=== PATIENT | male | born 1935 | race Caucasian/White ===

== ENCOUNTER 2017-10-26 14:14 | Emergency (ER) | payer OTHER ==
--- OUTSIDE RECORDS SUMMARY | 2017-10-26 14:16 | XMS REPORT | Clinical Summary ---
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
[2017-10-26] MEDS ORDERED: NA CHLORIDE 0.9% 1,000 ML ONE (14:54)
[2017-10-26 15:31] LABS: Absolute Lymphocytes (CBC) 0.5 K/uL (0.7-4.9); Absolute Monocytes 0.5 K/uL (0.1-1.3); Absolute Neutrophil 3.1 K/uL (1.8-8.0); Basophils % 0.2 % (0-1.3); Eosinophils % 0.1 % (0-4.4); Hematocrit 36.8 % (39.6-49.0); Lymphocytes % 11.5 % (15.3-44.8); MCH 30.9 pg (27.0-35.0); MCV 88.8 fL (80-100); MPV 9.7 fL (7.6-11.3); Monocytes % 12.1 % (3.3-12.3); RBC Red Blood Cell Count 4.15 M/uL (4.33-5.43)
[2017-10-26 15:45] LABS: Blood Morphology Comment NOT SEEN (NOT SEEN); Platelet Estimate DECR; Urine White Blood Cell Casts OK
--- NOTE | 2017-10-26 17:23 | ER ---
Nurse's Notes [facility] Name: Tate Olivas Age: 82 yrs Sex: Male : 1935 Arrival Date: 10/26/2017 Time: 14:15 Bed 14 Private MD: Edgar Nguyen T; Aileen Arellano M Diagnosis: Diarrhea, unspecified;Dehydration Presentation: 10/26 14:20 Presenting complaint: states: started Wednesday with diarrhea, have hemorrhoids, i tw2 thought he was constipated so i gave him a Dulcolax, and now just even water goes through him. Transition of care: patient was not received from another setting of care. Onset of symptoms was October 26, 2017. Care prior to arrival: None. 14:20 Method Of Arrival: Ambulatory tw2 14:20 Acuity: CINTHIA 3 tw2 Historical: - Allergies: 14:25 Doxycycline (confusion); tw2 14:25 PENICILLINS; tw2 - Home Meds: 14:25 verapamil 240 mg Oral TbER 1 tab once daily [Active]; lisinopril 20 mg Oral tab 1 tab tw2 once daily [Active]; rivastigmine tartrate 9.5 mg patch oral cap 1 cap 2 times per day [Active]; Sinemet 25-100 mg Oral tab 1 tab 3 times per day [Active]; vitamin E 15 unit/0.3 mL Oral drop 0.6 mL once daily [Active]; - PMHx: 14:25 Hairy cell leukemia; Parkinsons; Hypertension; tw2 - PSHx: 14:25 TURP; Skin Cancer Removal; tw2 - Immunization history:: Adult Immunizations up to date. - Social history:: Smoking status: Patient/guardian denies using tobacco. Screenin:48 Abuse screen: Denies threats or abuse. Nutritional screening: No deficits noted. ap3 Tuberculosis screening: No symptoms or risk factors identified. Fall Risk None identified. Assessment: 14:45 General: Appears in no apparent distress. well groomed, Behavior is calm, cooperative. ap3 Pain: Denies pain. Neuro: Level of Consciousness is awake, alert, obeys commands, Oriented to person, place, time, situation. Cardiovascular: Heart tones S1 S2 present Patient's skin is warm and dry. Respiratory: Airway is patent Respiratory effort is even, unlabored, Respiratory pattern is regular, symmetrical. GI: Bowel sounds present X 4 quads. Abd is soft and non tender X 4 quads. Reports diarrhea, since Wednesday October 25, 2017. : No signs and/or symptoms were reported regarding the genitourinary system. EENT: No signs and/or symptoms were reported regarding the EENT system. Derm: Skin is pink, warm \T\ dry. Musculoskeletal: Reports weakness in generalized body weakness. 17:02 Reassessment: patient resting in bed, eyes closed. Respirations even and unlabored. ap3 Side rails up X's 2. Call brizuela within reach. at bedside. Vital Signs: 14:22 BP 143 / 66; Pulse 88; Resp 17; Temp 99.4(O); Pulse Ox 97% on R/A; Weight 83.91 kg (R); tw2 Height 6 ft. 0 in. (182.88 cm); Pain 5/10; 15:30 BP 134 / 66; Pulse 80; Pulse Ox 98% on R/A; ap3 17:06 BP 156 / 69; Pulse Ox 98% on R/A; ap3 14:22 Body Mass Index 25.09 (83.91 kg, 182.88 cm) tw2 ED Course: 14:15 Patient arrived in ED. as 14:15 Edgar Nguyen MD is Private Physician. as 14:17 Aileen Arellano MD is Private Physician. as 14:22 Triage completed. tw2 14:22 Arm band placed on. tw2 14:48 Bed in low position. Call light in reach. Side rails up X2. Adult w/ patient. Pulse ox ap3 on. NIBP on. 14:51 Lindy Gomez FNP-C is PHCP. snw 14:51 Chaka Farmer MD is Attending Physician. snw 14:53 Eagle Carmen, RN is Primary Nurse. ae1 15:30 Inserted saline lock: 20 gauge in left antecubital area, using aseptic technique. Blood ap3 collected. 16:33 Inserted second set of blood cultures drawn from lower left forearm, using aseptic ap3 technique. 17:17 Primary Nurse role handed off by Eagle Carmen, RN 17:22 Pauline Duke, RN is Primary Nurse. aj1 17:22 Aileen Arellano MD is Referral Physician. snw 17:22 Edgar Nguyen MD is Referral Physician. snw 17:23 Report received from Alana Carmen RN. aj1 17:49 No provider procedures requiring assistance completed. IV discontinued, intact, aj1 bleeding controlled, No redness/swelling at site. Pressure dressing applied. Administered Medications: 15:07 Drug: NS 0.9% 1000 ml Route: IV; Rate: 75 ml/hr; Site: right antecubital; ae1 16:22 Drug: NS 0.9% 250 ml Route: IV; Rate: bolus; Site: right antecubital; ae1 Outcome: 17:11 Attestation : I agree with the charting done by Perla Jimenez, director nursing service. . ae1 17:22 Discharge ordered by . snw 17:50 Discharged to home via wheelchair. aj1 17:50 Condition: good 17:50 Discharge instructions given to patient, family, Instructed on discharge instructions, follow up and referral plans. Demonstrated understanding of instructions, follow-up care. 17:51 Patient left the ED. aj1 Signatures: Ruth Cuevas, RN RN Pauline Coles RN RN aj1 Lindy Gomez, MEAL TEMPERER-C MEAL TEMPERER-Csnw Paulina Linder Tara, RN RN tw2 Eagle Carmen RN RN ae1 Perla Jimenez ap3
--- NOTE | 2017-10-26 17:23 | EDPHYS ---
Physician Documentation [facility] Name: Tate Olivas Age: 82 yrs Sex: Male : 1935 Arrival Date: 10/26/2017 Time: 14:15 Bed 14 Private MD: Edgar Nguyen T; Aileen Arellano M ED Physician Chaka Farmer HPI: 10/26 15:25 This 82 yrs old Male presents to ER via Ambulatory with complaints of snw Diarrhea. 15:25 The patient presents to the emergency department with diarrhea. Onset: The snw symptoms/episode began/occurred suddenly, 3 day(s) ago, and became persistent. Possible causes: laxatives. Associated signs and symptoms: Pertinent positives:. Associated signs and symptoms: The patient has no apparent associated signs or symptoms. Severity of symptoms: At their worst the symptoms were moderate. It is unknown whether or not the patient has had similar symptoms in the past. sees Dr. Nguyen. Historical: - Allergies: 14:25 Doxycycline (confusion); tw2 14:25 PENICILLINS; tw2 - Home Meds: 14:25 verapamil 240 mg Oral TbER 1 tab once daily [Active]; lisinopril 20 mg Oral tab 1 tab tw2 once daily [Active]; rivastigmine tartrate 9.5 mg patch oral cap 1 cap 2 times per day [Active]; Sinemet 25-100 mg Oral tab 1 tab 3 times per day [Active]; vitamin E 15 unit/0.3 mL Oral drop 0.6 mL once daily [Active]; - PMHx: 14:25 Hairy cell leukemia; Parkinsons; Hypertension; tw2 - PSHx: 14:25 TURP; Skin Cancer Removal; tw2 - Immunization history:: Adult Immunizations up to date. - Social history:: Smoking status: Patient/guardian denies using tobacco. ROS: 15:24 Constitutional: Negative for fever, chills, and weight loss, Eyes: Negative for injury, snw pain, redness, and discharge, ENT: Negative for injury, pain, and discharge, Neck: Negative for injury, pain, and swelling, Cardiovascular: Negative for chest pain, palpitations, and edema, Respiratory: Negative for shortness of breath, cough, wheezing, and pleuritic chest pain, Back: Negative for injury and pain, : Negative for injury, bleeding, discharge, and swelling, MS/Extremity: Negative for injury and deformity, Skin: Negative for injury, rash, and discoloration, Neuro: Negative for headache, weakness, numbness, tingling, and seizure. 15:24 Abdomen/GI: Positive for diarrhea. Exam: 15:24 Constitutional: This is a well developed, well nourished patient who is awake, alert, snw and in no acute distress. Head/Face: Normocephalic, atraumatic. Eyes: Pupils equal round and reactive to light, extra-ocular motions intact. Lids and lashes normal. Conjunctiva and sclera are non-icteric and not injected. Cornea within normal limits. Periorbital areas with no swelling, redness, or edema. ENT: Nares patent. No nasal discharge, no septal abnormalities noted. Tympanic membranes are normal and external auditory canals are clear. Oropharynx with no redness, swelling, or masses, exudates, or evidence of obstruction, uvula midline. Mucous membranes moist. Neck: Trachea midline, no thyromegaly or masses palpated, and no cervical lymphadenopathy. Supple, full range of motion without nuchal rigidity, or vertebral point tenderness. No Meningismus. Chest/axilla: Normal chest wall appearance and motion. Nontender with no deformity. No lesions are appreciated. Cardiovascular: Regular rate and rhythm with a normal S1 and S2. No gallops, murmurs, or rubs. Normal PMI, no JVD. No pulse deficits. Respiratory: Lungs have equal breath sounds bilaterally, clear to auscultation and percussion. No rales, rhonchi or wheezes noted. No increased work of breathing, no retractions or nasal flaring. Back: No spinal tenderness. No costovertebral tenderness. Full range of motion. Skin: Warm, dry with normal turgor. Normal color with no rashes, no lesions, and no evidence of cellulitis. MS/ Extremity: Pulses equal, no cyanosis. Neurovascular intact. Full, normal range of motion. Neuro: Awake and alert, GCS 15, oriented to person, place, time, and situation. Cranial nerves II-XII grossly intact. Motor strength 5/5 in all extremities. Sensory grossly intact. Cerebellar exam normal. Normal gait. 15:24 Abdomen/GI: Inspection: abdomen appears normal, Bowel sounds: normal, Palpation: abdomen is soft and non-tender. Vital Signs: 14:22 BP 143 / 66; Pulse 88; Resp 17; Temp 99.4(O); Pulse Ox 97% on R/A; Weight 83.91 kg (R); tw2 Height 6 ft. 0 in. (182.88 cm); Pain 5/10; 15:30 BP 134 / 66; Pulse 80; Pulse Ox 98% on R/A; ap3 17:06 BP 156 / 69; Pulse Ox 98% on R/A; ap3 14:22 Body Mass Index 25.09 (83.91 kg, 182.88 cm) tw2 MDM: 14:51 Patient medically screened. snw 21:51 Data reviewed: vital signs, nurses notes. Data interpreted: Pulse oximetry: on room air snw is 98 %. Interpretation: normal. Counseling: I had a detailed discussion with the patient and/or guardian regarding: the historical points, exam findings, and any diagnostic results supporting the discharge/admit diagnosis, the presence of at least one elevated blood pressure reading (>120/80) during this emergency department visit, lab results, the need for outpatient follow up, to return to the emergency department if symptoms worsen or persist or if there are any questions or concerns that arise at home. Special discussion: Based on the history and exam findings, there is no indication for further emergent testing or inpatient evaluation. I discussed with the patient/guardian the need to see the entry examiner for further evaluation of the symptoms. I discussed with the patient/guardian the need to see the primary care provider for further evaluation of the symptoms. 10/26 14:52 Order name: CBC with Diff; Complete Time: 15:46 snw 10/26 14:52 Order name: Chem 7; Complete Time: 16:12 snw 10/26 14:52 Order name: Blood Culture Adult (2) snw 10/26 15:34 Order name: CBC Smear Scan; Complete Time: 15:46 EDMS Administered Medications: 15:07 Drug: NS 0.9% 1000 ml Route: IV; Rate: 75 ml/hr; Site: right antecubital; ae1 16:22 Drug: NS 0.9% 250 ml Route: IV; Rate: bolus; Site: right antecubital; ae1 Disposition: 10/27 07:02 Co-signature as Attending Physician, Chaka Farmer MD I agree with the assessment and vicente plan of care. Disposition: 10/26/17 17:22 Discharged to Home. Impression: Diarrhea, unspecified, Dehydration. - Condition is Stable. - Discharge Instructions: Food Choices to Help Relieve Diarrhea, Adult, Dehydration, Adult, Diarrhea, Sitz Bath. - Medication Reconciliation Form, Thank You Letter, Antibiotic Education, Prescription Opioid Use form. - Follow up: Aileen Arellano MD; When: 2 - 3 days; Reason: Recheck today's complaints, Continuance of care, Re-evaluation by your physician. Follow up: Edgar Nguyen MD; When: 2 - 3 days; Reason: Recheck today's complaints, Continuance of care, Re-evaluation by your physician. Signatures: Dispatcher [employer] Pauline Arteaga, RN RN aj1 Chaka Farmer MD MD cha Therrien, Shelly, IRON CUTTER-C IRON CUTTER-Csnw Rachel Ambrocio, RN RN tw2 Eagle Carmen RN RN ae1
== END 2017-10-26 17:51 | disposition home or self-care (01) ==
LOC: ER 14:14
DX: R19.7 Diarrhea, unspecified (principal); I10 Essential (primary) hypertension; Z88.0 Allergy status to penicillin; Z88.3 Allergy status to other anti-infective agents
CPT/HCPCS: 36415; 80048; 85025; 87040 ×2; 96374; 99284; J7030

== ENCOUNTER 2017-10-27 03:26 | Observation (INO) | payer OTHER ==
--- OUTSIDE RECORDS SUMMARY | 2017-10-27 03:28 | XMS REPORT | Clinical Summary ---
:1935 Author Organization [facility] Address [address] [place] [address] Care Team Providers Name Role Phone Dup_No, [...] INFLUENZA VACCINE 02/16/2018 Results Not on fileafter 10/26/2016 Insurance Payer Benefit Plan / Group Subscriber ID Type Phone Address AETNA MEDICARE AETNA MEDICARE HMO/PPO [facility] xxxxxxxx HMO
--- NOTE | 2017-10-27 04:35 | EDPHYS ---
Physician Documentation [facility] Name: Tate Olivas Age: 82 yrs Sex: Male : 1935 Arrival Date: 10/27/2017 Time: 03:36 Bed 16 Private MD: ED Physician Franki Walls HPI: 10/27 04:31 This 82 yrs old Male presents to ER via EMS with complaints of Diarrhea. gs 04:31 The patient presents to the emergency department with diarrhea, that is continuous. gs Onset: The symptoms/episode began/occurred 2 day(s) ago. Possible causes: unknown. The symptoms are aggravated by nothing. The symptoms are alleviated by nothing. Associated signs and symptoms: Pertinent negatives: abdominal pain, fever. Severity of symptoms: At their worst the symptoms were severe in the emergency department the symptoms are unchanged. The patient has experienced similar episodes in the past, a few times. The patient has been recently seen at the [facility] Emergency Department, yesterday. Historical: - Allergies: 03:42 Doxycycline (confusion); bb 03:42 PENICILLINS; bb - Home Meds: 03:42 lisinopril 20 mg Oral tab 1 tab once daily [Active]; rivastigmine 9.5 mg/24 hr bb transdermal pt24 1 patch once daily [Active]; verapamil 240 mg Oral TbER 1 tab once daily [Active]; vitamin E 15 unit/0.3 mL Oral drop 0.6 mL once daily [Active]; Sinemet 25-100 mg Oral tab 1 tab twice a day [Active]; vit C [Active]; clobetasol 0.05 % Topical crea daily [Active]; - PMHx: 03:42 Hairy cell leukemia; Hypertension; Parkinsons; bb - PSHx: 03:42 TURP; Skin Cancer Removal; bb - Immunization history:: Adult Immunizations up to date. - Social history:: Smoking status: Patient/guardian denies using tobacco. ROS: 04:31 Unable to obtain ROS due to baseline dementia. gs Exam: 04:31 Head/Face: Normocephalic, atraumatic. Eyes: Pupils equal round and reactive to light, gs extra-ocular motions intact. Lids and lashes normal. Conjunctiva and sclera are non-icteric and not injected. Cornea within normal limits. Periorbital areas with no swelling, redness, or edema. ENT: Nares patent. No nasal discharge, no septal abnormalities noted. Tympanic membranes are normal and external auditory canals are clear. Oropharynx with no redness, swelling, or masses, exudates, or evidence of obstruction, uvula midline. Mucous membranes moist. Neck: Trachea midline, no thyromegaly or masses palpated, and no cervical lymphadenopathy. Supple, full range of motion without nuchal rigidity, or vertebral point tenderness. No Meningismus. Chest/axilla: Normal chest wall appearance and motion. Nontender with no deformity. No lesions are appreciated. Cardiovascular: Regular rate and rhythm with a normal S1 and S2. No gallops, murmurs, or rubs. Normal PMI, no JVD. No pulse deficits. Respiratory: Lungs have equal breath sounds bilaterally, clear to auscultation and percussion. No rales, rhonchi or wheezes noted. No increased work of breathing, no retractions or nasal flaring. Abdomen/GI: Soft, non-tender, with normal bowel sounds. No distension or tympany. No guarding or rebound. No evidence of tenderness throughout. Back: No spinal tenderness. No costovertebral tenderness. Full range of motion. Skin: Warm, dry with normal turgor. Normal color with no rashes, no lesions, and no evidence of cellulitis. MS/ Extremity: Pulses equal, no cyanosis. Neurovascular intact. Full, normal range of motion. Neuro: Awake and alert, GCS 15, oriented to person, place, time, and situation. Cranial nerves II-XII grossly intact. Motor strength 5/5 in all extremities. Sensory grossly intact. Cerebellar exam normal. Normal gait. 04:31 Constitutional: The patient appears alert, awake. Vital Signs: 03:42 BP 154 / 78; Pulse 81; Resp 18 S; Temp 98.4(O); Pulse Ox 100% on R/A; Weight 84.82 kg bb (R); Height 6 ft. 0 in. (182.88 cm) (R); Pain 0/10; 05:06 BP 140 / 70; Pulse 78; Resp 18; Pulse Ox 100% on R/A; wh 05:58 BP 111 / 79; Pulse 87; Resp 18; Pulse Ox 98% on R/A; wh 03:42 Body Mass Index 25.36 (84.82 kg, 182.88 cm) jaycob MDM: 04:26 Patient medically screened. 04:31 Differential diagnosis: gastritis, viral gastroenteritis, gastroenteritis, dehydration. Data reviewed: vital signs, nurses notes. Response to treatment: the patient's symptoms have mildly improved after treatment, and as a result, I will admit patient. 10/27 04:36 Order name: Stool Culture 10/27 04:36 Order name: CDIFF Administered Medications: 04:48 Drug: NS 0.9% 1000 ml Route: IV; Rate: 125 ml/hr; Site: left forearm; 06:25 Follow up: Response: No adverse reaction; IV Status: Infusion continued upon admission Disposition: 10/27/17 04:34 Hospitalization ordered by Andree Cadet for Observation. Preliminary diagnosis are Diarrhea, unspecified, Dehydration. - Bed requested for Telemetry/MedSurg (observation). - Status is Observation. - Condition is Stable. - Problem is new. - Symptoms are unchanged. UTI on Admission? No Signatures: Dispatcher [employer] Nina Maloney RN RN bb Garcia, Cindy, RN RN cg Habalo, Winsy Franki Walls MD MD
--- NOTE | 2017-10-27 04:35 | ER ---
Nurse's Notes [facility] Name: Tate Olivas Age: 82 yrs Sex: Male : 1935 Arrival Date: 10/27/2017 Time: 03:36 Bed 16 Private MD: Diagnosis: Diarrhea, unspecified;Dehydration Presentation: 10/27 03:30 Presenting complaint: EMS states: pt was seen here yesterday for diarrhea sent home but bb is back because he is still having diarrhea. Transition of care: patient was not received from another setting of care. Onset of symptoms was October 26, 2017. Care prior to arrival: IV initiated. 20 GA, in the right antecubital area, Glucose check: 104. 03:30 Method Of Arrival: EMS: [facility] bb 03:30 Acuity: CINTHIA 3 bb Triage Assessment: 03:44 General: Appears in no apparent distress. Pain: Denies pain. GI: Abdomen is flat, wh non-distended, Abd is soft and non tender X 4 quads. Reports diarrhea. 03:45 General: Behavior is calm, cooperative. wh Historical: - Allergies: 03:42 Doxycycline (confusion); bb 03:42 PENICILLINS; bb - Home Meds: 03:42 lisinopril 20 mg Oral tab 1 tab once daily [Active]; rivastigmine 9.5 mg/24 hr bb transdermal pt24 1 patch once daily [Active]; verapamil 240 mg Oral TbER 1 tab once daily [Active]; vitamin E 15 unit/0.3 mL Oral drop 0.6 mL once daily [Active]; Sinemet 25-100 mg Oral tab 1 tab twice a day [Active]; vit C [Active]; clobetasol 0.05 % Topical crea daily [Active]; - PMHx: 03:42 Hairy cell leukemia; Hypertension; Parkinsons; bb - PSHx: 03:42 TURP; Skin Cancer Removal; bb - Immunization history:: Adult Immunizations up to date. - Social history:: Smoking status: Patient/guardian denies using tobacco. Screenin:42 Abuse screen: Denies threats or abuse. Denies injuries from another. Nutritional wh screening: No deficits noted. Tuberculosis screening: No symptoms or risk factors identified. Fall Risk Secondary diagnosis (15 points) Parkinsons. Assessment: 03:46 General: Appears in no apparent distress. comfortable, Behavior is calm, cooperative, wh appropriate for age. Pain: Denies pain. Neuro: Level of Consciousness is awake, alert, obeys commands, Oriented to person, place, time, situation. Cardiovascular: Denies chest pain, Heart tones S1 S2 Capillary refill < 3 seconds. Respiratory: Airway is patent Respiratory effort is even, unlabored, Respiratory pattern is regular, symmetrical, Breath sounds are clear bilaterally. GI: Abdomen is flat, non-distended, Bowel sounds present X 4 quads. Abd is soft and non tender X 4 quads. Reports diarrhea, since Wednesday. : No signs and/or symptoms were reported regarding the genitourinary system. EENT: No signs and/or symptoms were reported regarding the EENT system. Derm: Skin is intact, is healthy with good turgor, Skin is pink, warm \T\ dry. normal. Musculoskeletal: Range of motion: intact in all extremities. 05:06 Reassessment: Patient appears in no apparent distress at this time. Patient and/or wh family updated on plan of care and expected duration. Pain level reassessed. Patient is alert, oriented x 3, equal unlabored respirations, skin warm/dry/pink. Patient denies pain at this time. 05:57 Reassessment: Patient appears in no apparent distress at this time. Patient and/or wh family updated on plan of care and expected duration. Pain level reassessed. Patient is alert, oriented x 3, equal unlabored respirations, skin warm/dry/pink. Patient denies pain at this time. Vital Signs: 03:42 BP 154 / 78; Pulse 81; Resp 18 S; Temp 98.4(O); Pulse Ox 100% on R/A; Weight 84.82 kg bb (R); Height 6 ft. 0 in. (182.88 cm) (R); Pain 0/10; 05:06 BP 140 / 70; Pulse 78; Resp 18; Pulse Ox 100% on R/A; wh 05:58 BP 111 / 79; Pulse 87; Resp 18; Pulse Ox 98% on R/A; wh 03:42 Body Mass Index 25.36 (84.82 kg, 182.88 cm) ED Course: 03:36 Patient arrived in ED. bb 03:38 Triage completed. bb 03:39 Hina Muniz is Primary Nurse. wh 03:42 Arm band placed on Patient placed in an exam room, on a stretcher, on pulse oximetry. bb Family accompanied patient. 03:45 Patient has correct armband on for positive identification. Bed in low position. Call light in reach. Side rails up X 1. Pulse ox on. NIBP on. 04:12 Franki Walls MD is Attending Physician. 04:34 Andree Cadet MD is Hospitalizing Provider. 04:40 Inserted saline lock: 22 gauge in left forearm, using aseptic technique. 06:24 No provider procedures requiring assistance completed. Patient admitted, IV remains in place. Administered Medications: 04:48 Drug: NS 0.9% 1000 ml Route: IV; Rate: 125 ml/hr; Site: left forearm; 06:25 Follow up: Response: No adverse reaction; IV Status: Infusion continued upon admission Outcome: 04:34 Decision to Hospitalize by Provider. 06:24 Admitted to Med/surg accompanied by tech, family with patient, via stretcher, room 225, with chart, Report called to Stephanie Hernández LVN 06:24 Condition: good 06:24 Instructed on the need for admit. 06:26 Patient left the ED. Signatures: Nina Canales RN RN Hina Jiang Franki Walls MD MD Corrections: (The following items were deleted from the chart) 03:49 03:42 Fall Risk None identified. [facility]
[2017-10-27] MEDS ORDERED: NA CHLORIDE 0.9% 1,000 ML ONE (04:50)
[2017-10-27] MEDS ORDERED: ONDANSETRON 4 MG/2 ML VIAL IV PRN (05:45)
[2017-10-27] MEDS ORDERED: ACETAMINOPHEN 500 MG TAB PO PRN (05:45)
[2017-10-27] MEDS ORDERED: MORPHINE 2 MG/ML SYR IV PRN (05:45)
[2017-10-27] MEDS: NA CHLORIDE 0.9% 1,000 ML IV SCH ×2 (06:38→16:00)
[2017-10-27] MEDS ORDERED: MORPHINE 4 MG/ML SYR IV PRN (07:17)
--- NOTE | 2017-10-27 07:52 | P.HP ---
Certification for Inpatient Patient admitted to: Observation With expected LOS: <2 Midnights Patient will require the following post-hospital care: None Practitioner: I am a practitioner with admitting privileges, knowledge of patient current condition, hospital course, and medical plan of care. Services: Services provided to patient in accordance with Admission requirements found in Title 42 Section 412.3 of the Code of Federal Regulations Patient History Date of Service: 10/27/17 Reason for admission: Persistent diarrhea History of Present Illness: Patient is an 82-year-old gentleman with a history of Parkinson's disease. Patient came into the emergency room yesterday with persistent diarrhea. He was treated with IV hydration and discharged later in the day. Patient's diarrhea worsened when he got home so patient's brought him back into the emergency room. In the emergency room patient had stool studies and was given antibiotics. Patient has been having some fever but no shakes or chills. Patient states that his Parkinson's is controlled with his medications and is able to get around fairly well. Will go ahead and continue with hydration and await stool cultures. Will admit him to the hospital for observation. Allergies Penicillins Allergy (Verified 10/27/17 05:12) Unknown citric acid Adverse Reaction (Verified 10/27/17 05:12) Unknown Doxycycline Allergy (Uncoded 10/27/17 05:12) Confusion Home Medications: Ascorbic Acid [Vitamin C] 500 mg PO DAILY 10/27/17 Carbidopa/Levodopa [Carbidopa-Levo 25-100 mg Odt] 1 each PO BID 10/27/17 Clobetasol Propionate/Emoll [Clobetasol Emollient 0.05% Crm] 1 appl TP BEDTIME 10/27/17 Lisinopril 20 mg PO BEDTIME 10/27/17 Rivastigmine Patch [Exelon 9.5 mg Patch] 9.5 mg TD BEDTIME 10/27/17 Verapamil HCl [Verapamil Sr] 240 mg PO BEDTIME 10/27/17 - Past Medical/Surgical History Has patient received pneumonia vaccine in the past: Yes Diabetic: No -: Hairy Cell Leukemia -: HTN -: Parkinsons -: UTI -: Squamous Cell Carcinoma -: Basal Cell Carcinoma -: Squamous Cell Carcinoma Surgery -: Basal Cell Carcinoma Surgery - Family History Father Medical History: Hypertension Sister Medical History: Hypertension, Diabetes Brother Medical History: Diabetes - Social History Smoking Status: Never smoker Alcohol use: No CD- Drugs: No Caffeine use: Yes Place of Residence: Home Review of Systems 10-point ROS is otherwise unremarkable Physical Examination - Vital Signs Temperature: 97.2 F Blood Pressure: 136/73 Pulse: 71 Respirations: 16 Pulse Ox (%): 98 - Physical Exam General: Alert, In no apparent distress, Oriented x3 HEENT: Atraumatic, PERRLA, Mucous membr. moist/pink, EOMI, Sclerae nonicteric Neck: Supple, 2+ carotid pulse no bruit, No LAD, Without JVD or thyroid abnormality Respiratory: Clear to auscultation bilaterally, Normal air movement Cardiovascular: Regular rate/rhythm, Normal S1 S2, No murmurs Gastrointestinal: Hypoactive, Soft and benign, Non-distended, No tenderness Musculoskeletal: No clubbing, No swelling, No tenderness Integumentary: No rashes Neurological: Normal speech, Normal affect, Abnormal gait, Abnormal strength, Abnormal tone Lymphatics: No axilla or inguinal lymphadenopathy Assessment & Plan - Problems (Diagnosis) (1) Parkinsons disease Current Visit: Yes Status: Acute (2) Infectious diarrhea in adult patient Current Visit: Yes Status: Acute (3) Hyponatremia Current Visit: Yes Status: Acute (4) Acute kidney injury Current Visit: Yes Status: Acute - Plan -aggressive IV hydration and anti diarrheal medicines -IV antibiotics -outpatient colonoscopy -pain controlled -stool studies -monitor for bleeding -CT abdomen pelvis if symptoms worsen Discharge Plan: Home Plan to discharge in: 48 Hours - Advance Directives Does patient have a Living Will: Yes Does patient have a Durable POA for Healthcare: Yes - Code Status/Comfort Care Code Status Assessed: Yes Code Status: Full Code Critical Care: No Time Spent Managing PTS Care (In Minutes): 50
[2017-10-27] MEDS ORDERED: LOPERAMIDE HCL 2 MG CAPSULE PO PRN (07:53)
[2017-10-27] MEDS ORDERED: HYDROCORTISONE SUC 100 MG INJ IV SCH (09:00)
[2017-10-27] MEDS: ASCORBIC ACID 500 MG TABLET PO SCH (09:29)
[2017-10-27] MEDS: CARBIDOPA/LEVODOPA 25/100 TAB PO SCH ×2 (09:29→21:08)
[2017-10-27] MEDS: METRONIDAZOLE 500mg IVPB 500 MG/100 ML BAG IV SCH ×2 (09:30→16:11)
[2017-10-27] MEDS: Levofloxacin 250mg IV 250 MG/50 ML BAG IV SCH (10:11)
[2017-10-27 10:46] LABS: Absolute Lymphocytes (CBC) 0.5 K/uL (0.7-4.9); Absolute Monocytes 0.5 K/uL (0.1-1.3); Absolute Neutrophil 1.7 K/uL (1.8-8.0); Basophils % 0.3 % (0-1.3); Hematocrit 35.6 % (39.6-49.0); Lymphocytes % 20.1 % (15.3-44.8); MCH 31.8 pg (27.0-35.0); MPV 9.6 fL (7.6-11.3); Monocytes % 17.4 % (3.3-12.3)
[2017-10-27 11:22] LABS: Blood Morphology Comment NOT SEEN (NOT SEEN); Platelet Estimate DECR; Platelets, Giant NOTED; Urine White Blood Cell Casts OK
[2017-10-27 11:35] LABS: Albumin 3.8 g/dL (3.2-5.5); Bilirubin Total 0.9 mg/dL (0.3-1.2); Potassium 3.8 mEq/L (3.6-5.0); Protein, Total 6.2 g/dL (6.0-8.3)
--- NOTE | 2017-10-27 11:49 | RAD REPORT ---
EXAM DESCRIPTION: RAD - Abdomen 1 View (KUB) - 10/27/2017 11:21 am CLINICAL HISTORY: Diarrhea. COMPARISON: None. FINDINGS: A large amount of stool is present in the rectum and ascending colon. Diffuse distention w ith air of the small and large bowel loops is seen, probably indicating ileus. No bowel obstruction p attern observed. Mild degenerative changes are present in the lower lumbar spine. Vacuum disc degeneration noted. IMPRESSION: Large amount of stool is seen in the cecum. Stool is also present in the rectum. Diffuse adynamic ileus pattern is suspected.
[2017-10-27 19:18] LABS: Urine Appearance CLEAR; Urine Bilirubin NEGATIVE (NEG); Urine Blood NEGATIVE (NEG); Urine Color YELLOW; Urine Glucose NEGATIVE (NEG); Urine Protein NEGATIVE (NEG); Urine pH 6.5 (5.0-7.0)
[2017-10-27 19:32] LABS: Urine Microscopic Reflex NO UMIC
[2017-10-27] MEDS ORDERED: VERAPAMIL SR 240 MG TABLET PO SCH (21:00)
[2017-10-27] MEDS ORDERED: LISINOPRIL 20 MG TAB PO SCH (21:00)
[2017-10-27] MEDS ORDERED: RIVASTIGMINE 9.5 MG/24 HR PATCH TD SCH (21:00)
[2017-10-27] MEDS ORDERED: CLOBETASOL 0.05 % CREAM 15GM TOP SCH (21:00)
[2017-10-28] MEDS: METRONIDAZOLE 500mg IVPB 500 MG/100 ML BAG IV SCH ×2 (01:12→09:28)
[2017-10-28] MEDS: NA CHLORIDE 0.9% 1,000 ML IV SCH ×2 (01:12→09:28)
[2017-10-28] MEDS: Levofloxacin 250mg IV 250 MG/50 ML BAG IV SCH (09:28)
[2017-10-28] MEDS: CARBIDOPA/LEVODOPA 25/100 TAB PO SCH (09:29)
[2017-10-28] MEDS: ASCORBIC ACID 500 MG TABLET PO SCH (09:29)
--- NOTE | 2017-10-28 16:35 | P.SSS ---
Patient History Date of Service: 10/28/17 Primary Care Provider: Dr Nguyen Reason for admission: Persistent diarrhea History of Present Illness: Patient is an 82-year-old gentleman with a history of Parkinson's disease. Patient came into the emergency room yesterday with persistent diarrhea. He was treated with IV hydration and discharged later in the day. Patient's diarrhea worsened when he got home so patient's brought him back into the emergency room. In the emergency room patient had stool studies and was given antibiotics. Patient has been having some fever but no shakes or chills. Patient states that his Parkinson's is controlled with his medications and is able to get around fairly well. Will go ahead and continue with hydration and await stool cultures. Will admit him to the hospital for observation. Allergies Penicillins Allergy (Verified 10/27/17 05:12) Unknown citric acid Adverse Reaction (Verified 10/27/17 05:12) Unknown Doxycycline Allergy (Uncoded 10/27/17 05:12) Confusion Home Medications: Ascorbic Acid [Vitamin C] 500 mg PO DAILY 10/27/17 Carbidopa/Levodopa [Carbidopa-Levo 25-100 mg Odt] 1 each PO BID 10/27/17 Clobetasol Propionate/Emoll [Clobetasol Emollient 0.05% Crm] 1 appl TP BEDTIME 10/27/17 Lisinopril 20 mg PO BEDTIME 10/27/17 Rivastigmine Patch [Exelon 9.5 mg Patch] 9.5 mg TD BEDTIME 10/27/17 Verapamil HCl [Verapamil Sr] 240 mg PO BEDTIME 10/27/17 Ciprofloxacin HCl [Cipro 500 MG Tablet] 500 mg PO DAILY #10 tab 10/28/17 Loperamide [Imodium*] 2 mg PO Q4H PRN #15 cap 10/28/17 Metronidazole [Flagyl] 500 mg PO Q8H #30 tablet 10/28/17 - Past Medical/Surgical History Has patient received pneumonia vaccine in the past: Yes Diabetic: No -: Hairy Cell Leukemia -: HTN -: Parkinsons -: UTI -: Squamous Cell Carcinoma -: Basal Cell Carcinoma -: Squamous Cell Carcinoma Surgery -: Basal Cell Carcinoma Surgery - Family History Father -: Hypertension Sister -: Hypertension, Diabetes Brother -: Diabetes - Social History Smoking Status: Never smoker Alcohol use: No CD- Drugs: No Caffeine use: Yes Place of Residence: Home Review of Systems 10-point ROS is otherwise unremarkable Physical Examination - Vital Signs Temperature: 97.1 F Blood Pressure: 143/70 Pulse: 66 Respirations: 17 Pulse Ox (%): 97 - Physical Exam General: Alert, In no apparent distress HEENT: Atraumatic, PERRLA, Mucous membr. moist/pink, EOMI, Sclerae nonicteric Neck: Supple, 2+ carotid pulse no bruit, No LAD, Without JVD or thyroid abnormality Respiratory: Clear to auscultation bilaterally, Normal air movement Cardiovascular: Regular rate/rhythm, Normal S1 S2 Gastrointestinal: Normal bowel sounds, No tenderness Musculoskeletal: No tenderness Integumentary: No rashes Neurological: Normal gait, Normal speech, Normal strength at 5/5 x4 extr, Normal tone, Normal affect Lymphatics: No axilla or inguinal lymphadenopathy - Diagnosis (Problem(s)) (1) Acute kidney injury Onset Date: 10/27/17 Status: Resolved (2) Hyponatremia Onset Date: 10/27/17 Status: Resolved (3) Infectious diarrhea in adult patient Onset Date: 10/27/17 Status: Resolved (4) Parkinsons disease Onset Date: 10/27/17 Status: Chronic Treatment Summary: Pt was initially admitted to the hospital for diarrhea and dehydration along with electrolyte abnormality -Was placed on IV fluids with Cirpo and flagyl along with Imodium -Had resolution of diarrhea and kidney function improved. -Pt was then given a Regular diet which he tolerated well. -DC home with diagnosis of Gastroenteritis causing diarrhea and dehydration which is now resolved. -Give PPX of Cipro and flagyl - Disposition Disposition: ROUTINE DISCHARGE Condition: GOOD Patient Discharge Instructions: Please f/u with PCP in 1 to 2 weeks post discharge. Please f/u with GI in 1 week post discharge. You will need a Outpt Colonoscopy done once you f/u with GI. New medication. Cipro 500mg daily for 10 days. Flagyl 500mg q8h for 10 days. Please continue all other medication as prescribed by PCP Diet: Regular Activity: Ad paul
== END 2017-10-28 14:22 | disposition home or self-care (01) ==
LOC: ER 03:26 → ERHOLD 04:34 → INTOOBSV 04:34 → 2ND 05:59
PROVIDERS: ADMIT Hospitalist; ATTEND Hospitalist
DX: R19.7 Diarrhea, unspecified (principal); E86.0 Dehydration; N17.9 Acute kidney failure, unspecified; E87.1 Hypo-osmolality and hyponatremia; G20 Parkinson's disease; I10 Essential (primary) hypertension; Z88.0 Allergy status to penicillin; Z85.828 Personal history of other malignant neoplasm of skin; Z85.6 Personal history of leukemia
CPT/HCPCS: 36415; 74018; 80053; 81003; 85025; 87045; 87046; 96360; 96361; 99285; G0378 ×2; J1720; J7030 ×3; J2270

== ENCOUNTER 2018-08-13 10:07 | Emergency (ER) | payer OTHER ==
--- OUTSIDE RECORDS SUMMARY | 2018-08-13 10:09 | XMS REPORT | Clinical Summary ---
:1935 Author Organization [facility] Address [address] [place] [address] Care Team Providers Name Role Phone Dup_No, Contact Primary Care Provider Unavailable Allergies Active Allergy Reactions Severity Noted Date Comments Doxycycline Other (See Comments) Medium 03/12/2016 confusion Medications Not on file Active Problems Problem Noted Date Hairy cell leukemia 03/13/2016 Encounters Date Type Specialty Care Team Description 06/14/2018 Orders Only Hematology Vy Sena MA Other specified diseases of blood and blood-forming organs (Primary Dx) after 08/12/2017 Social History Tobacco Use Types Packs/Day Years Used Date Never Assessed Sex Assigned at Date Recorded Not on file Job Start Date Occupation Industry Not on file Not on file Not on file Travel History Travel Start Travel End No recent travel history available. Last Filed Vital Signs Not on file Plan of Treatment Health Maintenance Due Date Last Done Comments SHINGLES VACCINES (1 of 2) 1986 PNEUMOCOCCAL POLYSACCHARIDE VACCINE AGE 65 AND OVER 2001 PNEUMOCOCCAL-13 2001 INFLUENZA VACCINE 02/16/2018 Results Not on fileafter 08/12/2017 Insurance Payer Benefit Plan / Group Subscriber ID Type Phone Address AETNA MEDICARE AETNA MEDICARE HMO/PPO [facility] xxxxxxxx HMO Advance Directives Patient has advance care planning documents on file. For more information, please contact:[address] [address]
[2018-08-13 10:53] LABS: Absolute Lymphocytes (CBC) 0.8 K/uL (0.7-4.9); Absolute Monocytes 0.6 K/uL (0.1-1.3); Absolute Neutrophil 1.2 K/uL (1.8-8.0); Basophils % 0.5 % (0-1.3); Eosinophils % 0.1 % (0-4.4); Hematocrit 36.9 % (39.6-49.0); Lymphocytes % 30.6 % (15.3-44.8); RBC Red Blood Cell Count 4.11 M/uL (4.33-5.43)
[2018-08-13 10:59] LABS: Protime INR 1.09
[2018-08-13 11:11] LABS: ALT/SGPT 17 U/L (12-78); AST/SGOT 15 U/L (15-37); Albumin 3.8 g/dL (3.4-5.0); Alkaline Phosphatase 116 U/L (45-117); BUN Blood Urea Nitrogen 28 mg/dL (7-18); Bicarbonate 29 mmol/L (21-32); Bilirubin Direct 0.2 mg/dL (0-0.2); Bilirubin Total 0.6 mg/dL (0.2-1.0); Glucose Level 74 mg/dL (74-106); Magnesium 2.5 mg/dL (1.8-2.4); NT PRO-BNP 111 pg/mL (<450); Potassium 4.3 mmol/L (3.5-5.1); Protein, Total 7.1 g/dL (6.4-8.2); Sodium Level 137 mmol/L (136-145); Troponin (Emerg Dept Use Only) < 0.02 ng/mL (0.0-0.045)
--- NOTE | 2018-08-13 11:24 | RAD REPORT ---
EXAM DESCRIPTION: RAD - Pelvis - 08/13/2018 11:11 am CLINICAL HISTORY: Unsteady gait, pelvic pain COMPARISON: None. TECHNIQUE: AP imaging of the pelvis was obtained. FINDINGS: No fracture of the bony pelvis. No fracture, dislocation or other acute hip joint finding. No significant SI joint findings. Multiple phleboliths seen in the left side pelvis. No soft tissue abnormality. Patient has advanced degenerative change in the lower lumbar spine. There is suspected height loss in the L5 body. Very significant right L4-5 disc space narrowing present. IMPRESSION: No fracture or acute finding of the bony pelvis. No suspicious right hip joint finding. Degenerative changes are present. Left hip joint is separately detailed. Very advanced degenerative change in the lower lumbar spine L4-5 incompletely assessed on this study.
--- NOTE | 2018-08-13 11:25 | RAD REPORT ---
EXAM DESCRIPTION: RAD - Hip Left 2 View - 08/13/2018 11:11 am CLINICAL HISTORY: Unsteady gait, left hip pain COMPARISON: None. FINDINGS: AP and frogleg views of the left hip were obtained. No fracture deformity seen. There is n o dislocation of the left femoral head. Degenerative changes are present along the superior acetabula r rim. No pathologic bone process. Femoral head maintains smooth rounded contour. No periarticular mass or hematoma. IMPRESSION: Negative left hip examination for acute or significant findings. Underlying degenerative changes are present mild for age.
--- NOTE | 2018-08-13 11:26 | RAD REPORT ---
EXAM DESCRIPTION: RAD - Chest Single View - 08/13/2018 11:11 am CLINICAL HISTORY: Cough, chest pain COMPARISON: None. TECHNIQUE: AP portable chest image was obtained 1107 hours . FINDINGS: Lung volumes are low. Fibrotic changes are present in each lung base. There is likely mini mal atelectasis at each base. No consolidation, mass or failure finding. Heart and vasculature are no rmal. No measurable pleural effusion and no pneumothorax. No acute bony abnormality seen. No acute ao rtic findings suspected. IMPRESSION: Limited shallow inspiration film without acute cardiopulmonary process. Mild fibrotic changes are evident.
[2018-08-13 11:35] LABS: Anisocytosis 1+; Blood Morphology Comment NOTED (NOT SEEN); Platelet Estimate DECR
--- NOTE | 2018-08-13 11:36 | EKG ---
Test Date: 2018-08-13 Test Time: 10:44:00 Support Representative: CARMEN MEASUREMENT RESULTS: Intervals: Rate: 74 DC: 156 QRSD: 84 QT: 392 QTc: 435 [place]: P: 75 DC: 156 QRS: 51 T: 50 INTERPRETIVE STATEMENTS: Normal sinus rhythm Normal ECG No previous ECG available for comparison Electronically Signed On 08-13-18 11:35:33 HOUSE [employer]ORER by Sean Hunter
[2018-08-13 11:54] LABS: Urine Bacteria <20 /HPF (NONE SEEN); Urine Culture Reflex Order NOT NEEDED; Urine RBC <5 /HPF (NONE SEEN)
[2018-08-13 12:21] LABS: Urine Blood NEGATIVE (NEG); Urine Glucose NEGATIVE (NEG); Urine Protein NEGATIVE (NEG)
--- NOTE | 2018-08-13 14:14 | ER ---
Nurse's Notes [facility] Name: Tate Olivas Age: 83 yrs Sex: Male : 1935 Arrival Date: 08/13/2018 Time: 10:10 Bed 6 Private MD: Edgar Nguyen T Diagnosis: Dementia in other diseases classified elsewhere Presentation: 08/13 10:19 Presenting complaint: Patient states: Unsteady on my feet, chest wall pain that started sg this morning, pt stated he has a hx of parkinsons so unsure if his gait is changing because of that or if its due to his heart, we dont know, pt stated his feet have been swelling off and on as well. Transition of care: patient was not received from another setting of care. Onset of symptoms was August 13, 2018. Risk Assessment: Do you want to hurt yourself or someone else? Patient reports no desire to harm self or others. Initial Sepsis Screen: Does the patient meet any 2 criteria? No. Patient's initial sepsis screen is negative. Does the patient have a suspected source of infection? No. Patient's initial sepsis screen is negative. Care prior to arrival: None. 10:19 Method Of Arrival: Ambulatory sg 10:19 Acuity: CINTHIA 3 sg Historical: - Allergies: 10:22 Doxycycline (confusion); sg 10:22 PENICILLINS; sg - Home Meds: 10:40 lisinopril 20 mg Oral tab 1 tab once daily [Active]; rivastigmine 13.3 mg/24 hour ph transdermal pt24 1 patch once daily [Active]; carbidopa-levodopa 25-100 mg Oral tab 1 tab 3 times per day [Active]; verapamil 240 mg Oral TbER 1 tab once daily [Active]; melatonin 5 mg Oral cap nightly [Active]; - PMHx: 10:22 Hairy cell leukemia; Hypertension; Parkinsons; sg - PSHx: 10:22 TURP; Skin Cancer Removal; sg - Immunization history:: Adult Immunizations up to date. - Social history:: Smoking status: Patient/guardian denies using tobacco. - Ebola Screening: : Patient negative for fever greater than or equal to 101.5 degrees Fahrenheit, and additional compatible Ebola Virus Disease symptoms Patient denies exposure to infectious person Patient denies travel to an Ebola-affected area in the 21 days before illness onset No symptoms or risks identified at this time. Screenin:40 Abuse screen: Denies threats or abuse. Denies injuries from another. Nutritional ph screening: No deficits noted. Tuberculosis screening: No symptoms or risk factors identified. Fall Risk Fall in past 12 months (25 points). Secondary diagnosis (15 points) IV access (20 points). Ambulatory Aid- Crutches/Cane/Walker (15 pts). Gait- Weak (10 pts.). Mental Status- Oriented to own ability (0 pts). Total Parsons Fall Scale indicates High Risk Score (45 or more points). Fall prevention measures have been instituted. Side Rails Up X 2 Placed Close to Nursing Station Frequent Obs/Assessments Occuring Family Present and informed to notify staff if the need to leave the bedside As available patient and family educated on Fall Prevention Program and Strategies. Assessment: 10:41 General: Appears in no apparent distress. comfortable, well groomed, Behavior is calm, ph cooperative, appropriate for age, Denies fever, chills. Pain: Complains of pain in chest and left hip Pain does not radiate. Pain began 2-3 days ago. Neuro: Level of Consciousness is awake, alert, obeys commands, Oriented to person, place, time, situation. Cardiovascular: Reports chest pain, Denies nausea, shortness of breath, vomiting, Capillary refill < 3 seconds in bilateral fingers Patient's skin is warm and dry. Chest pain is located in right left anterior chest wall substernal area episodes are intermittent is aggravated by activity. Respiratory: Airway is patent Respiratory effort is even, unlabored, Respiratory pattern is regular, symmetrical. GI: No signs and/or symptoms were reported involving the gastrointestinal system. Patient currently denies abdominal pain, diarrhea, nausea, vomiting. : Denies burning with urination, Parent/caregiver report the patient having incontinence since urinary/ since night urinary frequency. Derm: Skin is fragile, is thin, Skin is pink, warm \T\ dry. Musculoskeletal: Circulation, motion, and sensation intact. Swelling absent Reports pain in left hip. 12:09 Reassessment: Patient appears in no apparent distress at this time. Patient and/or ph family updated on plan of care and expected duration. Pain level reassessed. Patient is alert, oriented x 3, equal unlabored respirations, skin warm/dry/pink. Pt resting quietly, at bedside, awaiting lab and radiology results. 13:30 Reassessment: Patient appears in no apparent distress at this time. Patient and/or ph family updated on plan of care and expected duration. Pain level reassessed. Patient is alert, oriented x 3, equal unlabored respirations, skin warm/dry/pink. 15:00 Reassessment: Patient appears in no apparent distress at this time. Patient and/or ph family updated on plan of care and expected duration. Pain level reassessed. Patient is alert, oriented x 3, equal unlabored respirations, skin warm/dry/pink. Pt d/c home w/ SO. Vital Signs: 10:21 BP 156 / 66; Pulse 76; Resp 17; Temp 97.2; Pulse Ox 96% on R/A; Weight 78.93 kg; Height sg 6 ft. 0 in. (182.88 cm); Pain 3/10; 12:10 BP 134 / 75; Pulse 68; Resp 18; Pulse Ox 100% on R/A; ph 13:00 BP 138 / 78; Pulse 67; Resp 18; Pulse Ox 97% on R/A; ph 14:00 BP 141 / 72; Pulse 71; Resp 16; Pulse Ox 97% on R/A; ph 15:00 BP 137 / 76; Pulse 69; Resp 19; Temp 97.9; Pulse Ox 96% on R/A; ph 10:21 Body Mass Index 23.60 (78.93 kg, 182.88 cm) sg ED Course: 10:10 Patient arrived in ED. as 10:10 Edgar Nguyen MD is Private Physician. as 10:16 Tania Key RN is Primary Nurse. ph 10:19 Michel Castillo PA is PHCP. jmm 10:19 Santos Sifuentes MD is Attending Physician. jm 10:21 Triage completed. sg 10:23 Arm band placed on. sg 10:40 Patient has correct armband on for positive identification. Placed in gown. Bed in low ph position. Call light in reach. Side rails up X2. director of public safety on. Pulse ox on. NIBP on. Door closed. Noise minimized. Warm blanket given. 10:41 Patient maintains SpO2 saturation greater than 95% on room air. ph 10:45 Initial lab(s) drawn, by me, sent to lab. Inserted saline lock: 20 gauge in left aj1 antecubital area, using aseptic technique. Blood collected. 11:10 X-ray completed. Patient tolerated procedure well. Patient moved back from radiology. sg4 11:11 XRAY Chest (1 view) In Process Unspecified. EDMS 11:11 Pelvis XRAY In Process Unspecified. EDMS 11:11 Hip Left 2 View XRAY In Process Unspecified. EDMS 14:14 Edgar Nguyen MD is Referral Physician. [facility] 15:00 No provider procedures requiring assistance completed. IV discontinued, intact, ph bleeding controlled, No redness/swelling at site. Pressure dressing applied. Administered Medications: No medications were administered Outcome: 14:14 Discharge ordered by . [facility] 15:03 Patient left the ED. ph 15:03 Discharged to home via wheelchair, with significant other. ph 15:03 Condition: good 15:03 Discharge instructions given to patient, significant other, Instructed on discharge instructions, follow up and referral plans. Demonstrated understanding of instructions, follow-up care. Signatures: Dispatcher [employer] Pauline Arteaga RN RN aj1 Min Nuñez RN RN Michel Castillo, GABBI PA Paulina Huynh Patricia, RN RN Maeve Wood sg4
--- NOTE | 2018-08-13 14:14 | EDPHYS ---
Physician Documentation [facility] Unit Name: Tate Olivas Age: 83 yrs Sex: Male : 1935 Arrival Date: 08/13/2018 Time: 10:10 Bed 6 Private MD: Edgar Nguyen T ED Physician Santos Sifuentes HPI: 08/13 10:42 This 83 yrs old Male presents to ER via Ambulatory with complaints of Feet jmm Swelling, Chest Wall Pain - Repeated Falls. 10:42 Onset: The symptoms/episode began/occurred gradually, 4 day(s) ago. This is an 83 year jmm old male with a history of htn, parkinsons that presents to the ED with complaints of urinary symptoms beginning this past . states the patient will get up at night and urinate in random areas of the house. Patient also has secondary complaints of chest pain with cough, left hip pain, feet swelling, and right arm pain. Patient currently denies chest pain and states symptoms only develop with cough. . 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 - Social history:: Smoking status: Patient/guardian denies using tobacco. - Ebola Screening: : Patient negative for fever greater than or equal to 101.5 degrees Fahrenheit, and additional compatible Ebola Virus Disease symptoms Patient denies exposure to infectious person Patient denies travel to an Ebola-affected area in the 21 days before illness onset No symptoms or risks identified at this time. ROS: 10:42 Constitutional: Negative for fever, chills, and weight loss. jmm 10:42 Abdomen/GI: Negative for abdominal pain, nausea, vomiting, diarrhea, and constipation. 10:42 Cardiovascular: Positive for chest pain, with cough. 10:42 Respiratory: Positive for cough. 10:42 : Positive for urinary symptoms. 10:42 MS/extremity: Positive for pain. 10:42 All other systems are negative. Exam: 10:42 Constitutional: This is a well developed, well nourished patient who is awake, alert, jmm and in no acute distress. Head/Face: atraumatic. Eyes: EOMI, no conjunctival erythema appreciated ENT: Moist Mucus Membranes Neck: Trachea midline, Supple Chest/axilla: Normal chest wall appearance and motion. 10:42 Cardiovascular: Rate: normal, Rhythm: regular. 10:42 Respiratory: the patient does not display signs of respiratory distress, Respirations: normal, Breath sounds: are clear throughout. 10:42 Abdomen/GI: Inspection: abdomen appears normal, Bowel sounds: normal. 10:42 Musculoskeletal/extremity: ROM: intact in all extremities. 10:42 Musculoskeletal/extremity: FROM appreciated to the left hip without pain, no edema or swelling is appreciated bilaterally, no swelling or erythema appreciated ot the right arm. compartments are soft, NVI. . 10:42 Skin: Appearance: Color: normal in color. 10:42 Neuro: Orientation: is normal, Mentation: is normal. 10:42 Psych: Behavior/mood is pleasant, cooperative. Vital Signs: 10:21 BP 156 / 66; Pulse 76; Resp 17; Temp 97.2; Pulse Ox 96% on R/A; Weight 78.93 kg; Height sg 6 ft. 0 in. (182.88 cm); Pain 3/10; 12:10 BP 134 / 75; Pulse 68; Resp 18; Pulse Ox 100% on R/A; ph 13:00 BP 138 / 78; Pulse 67; Resp 18; Pulse Ox 97% on R/A; ph 14:00 BP 141 / 72; Pulse 71; Resp 16; Pulse Ox 97% on R/A; ph 15:00 BP 137 / 76; Pulse 69; Resp 19; Temp 97.9; Pulse Ox 96% on R/A; ph 10:21 Body Mass Index 23.60 (78.93 kg, 182.88 cm) MDM: 10:35 Patient medically screened. melly 14:07 Data reviewed: vital signs, nurses notes, lab test result(s), EKG, radiologic studies. [facility] Data interpreted: Pulse oximetry: on room air is 100 %. Counseling: I had a detailed discussion with the patient and/or guardian regarding: the historical points, exam findings, and any diagnostic results supporting the discharge/admit diagnosis, lab results, radiology results, the need for outpatient follow up, to return to the emergency department if symptoms worsen or persist or if there are any questions or concerns that arise at home. ED course: Patient is alert and non toxic in appearance in the ED. Patient has no chest pain or shortness of breath. Family is advised to follow up with Dr. Funes for reevaluation and otherwise. Symptoms appear most likely to dementia. Family is given return precautions. . 08/13 10:35 Order name: Basic Metabolic Panel; Complete Time: 11: [facility] 08/13 10:35 Order name: CBC with Diff; Complete Time: 11:36 [facility] 08/13 10:35 Order name: LFT's; Complete Time: 11: [facility] 08/13 10:35 Order name: Magnesium; Complete Time: 11: [facility] 08/13 10:35 Order name: NT PRO-BNP; Complete Time: 11: [facility] 08/13 10:35 Order name: PT-INR; Complete Time: 11:09 [facility] 08/13 10:35 Order name: Troponin (emerg Dept Use Only); Complete Time: 11: [facility] 08/13 10:35 Order name: XRAY Chest (1 view); Complete Time: 11:36 [facility] 08/13 10:37 Order name: Pelvis XRAY; Complete Time: 11:36 [facility] 08/13 10:37 Order name: Hip Left 2 View XRAY; Complete Time: 11:36 [facility] 08/13 10:37 Order name: Urine Microscopic Only; Complete Time: 11:55 [facility] 08/13 10:37 Order name: Flu; Complete Time: 11:55 [facility] 08/13 11:35 Order name: Manual Differential; Complete Time: 11:36 [facility] 08/13 12:02 Order name: Urine Dipstick--Ancillary (enter results); Complete Time: 12:38 08/13 10:35 Order name: EKG; Complete Time: 10:36 [facility] 08/13 10:35 Order name: Cardiac monitoring; Complete Time: 10:44 [facility] 08/13 10:35 Order name: EKG - Nurse/Tech; Complete Time: [facility] 08/13 10:35 Order name: IV Saline Lock; Complete Time: [facility] 08/13 10:35 Order name: Labs collected and sent; Complete Time: [facility] 08/13 10:35 Order name: O2 Per Protocol; Complete Time: [facility] 08/13 10:35 Order name: O2 Sat Monitoring; Complete Time: [facility] 08/13 10:37 Order name: Urine Dipstick-Ancillary (obtain specimen); Complete Time: [facility] Administered Medications: No medications were administered Disposition: 08/14 07:00 Co-signature as Attending Physician, Santos Sifuentes MD. rn Disposition: 08/13/18 14:14 Discharged to Home. Impression: Dementia in other diseases classified elsewhere. - Condition is Stable. - Discharge Instructions: Dementia, Lewy Body Dementia. - Medication Reconciliation Form, Thank You Letter, Antibiotic Education, Prescription Opioid Use form. - Follow up: Edgar Nguyen MD; When: 2 - 3 days; Reason: Recheck today's complaints, Continuance of care, Re-evaluation by your physician. Signatures: Dispatcher [employer] EDMin Mcclain RN RN Michel Suarez PA PA [facility] Santos Sifuentes MD MD rn Hall, Patricia, RN RN ph Corrections: (The following items were deleted from the chart) 08/13 15:03 14:14 08/13/2018 14:14 Discharged to Home. Impression: Dementia in other diseases ph classified elsewhere. Condition is Stable. Forms are Medication Reconciliation Form, Thank You Letter, Antibiotic Education, Prescription Opioid Use. Follow up: Edgar Nguyen; When: 2 - 3 days; Reason: Recheck today's complaints, Continuance of care, Re-evaluation by your physician. [facility]
== END 2018-08-13 15:03 | disposition home or self-care (01) ==
LOC: ER 10:07
DX: G20 Parkinson's disease (principal); F02.80 Dementia in other diseases classified elsewhere, unspecified severity, without behavioral disturbance, psychotic disturbance, mood disturbance, and anxiety; I10 Essential (primary) hypertension; Z88.0 Allergy status to penicillin; Z88.1 Allergy status to other antibiotic agents; Z85.6 Personal history of leukemia; Z85.828 Personal history of other malignant neoplasm of skin
CPT/HCPCS: 36415; 71045; 72170; 80048; 80076; 81003; 81015; 83735; 83880; 84484; 85025; 85610; 87804; 93005; 99285

== ENCOUNTER 2018-11-12 18:56 | Observation (INO) | payer OTHER ==
--- OUTSIDE RECORDS SUMMARY | 2018-11-12 18:59 | XMS REPORT | Clinical Summary ---
:1935 Author Organization [facility] Address [address] [place] [address] Care Team Providers Name Role Phone Dup_No, [...] blood and blood-forming organs (Primary Dx) after 11/11/2017 Social History Tobacco Use Types Packs/Day Years Used Date Never Assessed Sex Assigned at Date Recorded Not on file Job Start Date Occupation Industry Not on file Not on file Not on file Travel History Travel Start Travel End No recent travel history available. Last Filed Vital Signs Not on file Plan of Treatment Health Maintenance Due Date Last Done Comments SHINGLES VACCINES (#1) 1986 65+ PNEUMOCOCCAL VACCINE (1 of 2 - PCV13) 2001 PNEUMOCOCCAL POLYSACCHARIDE VACCINE AGE 65 AND OVER 2001 INFLUENZA VACCINE 02/16/2019 Results Not on fileafter 11/11/2017 Insurance Payer Benefit Plan / Group Subscriber ID Type Phone Address AETNA MEDICARE AETNA MEDICARE HMO/PPO [facility] xxxxxxxx HMO Advance Directives Patient has advance care planning documents on file. For more information, please contact:[address] [address]
[2018-11-12] MEDS ORDERED: NA CHLORIDE 0.9% 1,000 ML ONE (19:59)
[2018-11-12 20:19] LABS: Protime INR 1.06
[2018-11-12 20:20] LABS: Absolute Lymphocytes (CBC) 0.6 K/uL (0.7-4.9); Absolute Monocytes 0.8 K/uL (0.1-1.3); Absolute Neutrophil 3.7 K/uL (1.8-8.0); Basophils % 0.4 % (0-1.3); Hematocrit 35.8 % (39.6-49.0); Lymphocytes % 11.9 % (15.3-44.8); MPV 10.3 fL (7.6-11.3); Monocytes % 16.3 % (3.3-12.3); RBC Red Blood Cell Count 4.04 M/uL (4.33-5.43)
--- NOTE | 2018-11-12 20:25 | RAD REPORT ---
EXAM DESCRIPTION: Elio Single View11/12/2018 8:19 pm CLINICAL HISTORY: Cough COMPARISON: July 2018 FINDINGS: The lungs appear clear of acute infiltrate. The heart is normal size IMPRESSION: No acute abnormalities displayed
[2018-11-12 20:35] LABS: ALT/SGPT 13 U/L (12-78); AST/SGOT 15 U/L (15-37); Alkaline Phosphatase 77 U/L (45-117); BUN Blood Urea Nitrogen 39 mg/dL (7-18); Bicarbonate 27 mmol/L (21-32); Bilirubin Direct 0.2 mg/dL (0-0.2); Bilirubin Total 0.7 mg/dL (0.2-1.0); Glucose Level 124 mg/dL (74-106); Lipase 242 U/L (73-393); Magnesium 2.5 mg/dL (1.8-2.4); NT PRO-BNP 107 pg/mL (<450); Potassium 4.4 mmol/L (3.5-5.1); Protein, Total 7.3 g/dL (6.4-8.2); Sodium Level 135 mmol/L (136-145); Troponin (Emerg Dept Use Only) < 0.02 ng/mL (0.0-0.045)
[2018-11-12 20:52] LABS: Blood Morphology Comment NOT SEEN (NOT SEEN); Platelet Estimate DECR; Urine White Blood Cell Casts OK
--- NOTE | 2018-11-12 21:41 | EDPHYS ---
Physician Documentation [facility] Name: Tate Olivas Age: 83 yrs Sex: Male : 1935 Arrival Date: 11/12/2018 Time: 18:58 Bed 28 Private MD: Edgar Nguyen T ED Physician Chaka Farmer HPI: 11/12 19:35 This 83 yrs old Male presents to ER via Ambulatory with complaints of vicente Diarrhea. 19:35 The patient presents to the emergency department with nausea, vomiting. Onset: The vicente symptoms/episode began/occurred 1 day(s) ago. Possible causes: unknown. The symptoms are aggravated by nothing. The symptoms are alleviated by nothing. Associated signs and symptoms: The patient has no apparent associated signs or symptoms. Severity of symptoms: At their worst the symptoms were. The patient has not experienced similar symptoms in the past. Historical: - Allergies: 19:03 Doxycycline (confusion); la1 19:03 PENICILLINS; la1 - Home Meds: 19:03 carbidopa-levodopa 25-100 mg Oral tab 1 tab 4 times per day [Active]; lisinopril 20 mg la1 Oral tab 1 tab once daily [Active]; melatonin 5 mg Oral cap nightly [Active]; rivastigmine 9.5 mg/24 hr transdermal pt24 1 patch once daily [Active]; - PMHx: 19:03 Hairy cell leukemia; Hypertension; Parkinsons; la1 - Immunization history:: Adult Immunizations up to date. - Social history:: Smoking status: Patient/guardian denies using tobacco. - Ebola Screening: : No symptoms or risks identified at this time. - Family history:: not pertinent. ROS: 19:35 Constitutional: Negative for fever, chills, and weight loss, Eyes: Negative for injury, vicente pain, redness, and discharge, ENT: Negative for injury, pain, and discharge, Neck: Negative for injury, pain, and swelling, Cardiovascular: Negative for chest pain, palpitations, and edema, Respiratory: Negative for shortness of breath, cough, wheezing, and pleuritic chest pain, Back: Negative for injury and pain, : Negative for injury, bleeding, discharge, and swelling, MS/Extremity: Negative for injury and deformity, Skin: Negative for injury, rash, and discoloration, Neuro: Negative for headache, weakness, numbness, tingling, and seizure, Psych: Negative for depression, anxiety, suicide ideation, homicidal ideation, and hallucinations, Allergy/Immunology: Negative for hives, rash, and allergies, Endocrine: Negative for neck swelling, polydipsia, polyuria, polyphagia, and marked weight changes, Hematologic/Lymphatic: Negative for swollen nodes, abnormal bleeding, and unusual bruising. 19:35 Abdomen/GI: Positive for abdominal pain, of the right upper quadrant, left upper quadrant, right lower quadrant and left lower quadrant. Exam: 19:35 Constitutional: This is a well developed, well nourished patient who is awake, alert, vicente and in no acute distress. Head/Face: Normocephalic, atraumatic. Eyes: Pupils equal round and reactive to light, extra-ocular motions intact. Lids and lashes normal. Conjunctiva and sclera are non-icteric and not injected. Cornea within normal limits. Periorbital areas with no swelling, redness, or edema. ENT: Nares patent. No nasal discharge, no septal abnormalities noted. Tympanic membranes are normal and external auditory canals are clear. Oropharynx with no redness, swelling, or masses, exudates, or evidence of obstruction, uvula midline. Mucous membranes moist. Neck: Trachea midline, no thyromegaly or masses palpated, and no cervical lymphadenopathy. Supple, full range of motion without nuchal rigidity, or vertebral point tenderness. No Meningismus. Chest/axilla: Normal chest wall appearance and motion. Nontender with no deformity. No lesions are appreciated. Cardiovascular: Regular rate and rhythm with a normal S1 and S2. No gallops, murmurs, or rubs. Normal PMI, no JVD. No pulse deficits. Respiratory: Lungs have equal breath sounds bilaterally, clear to auscultation and percussion. No rales, rhonchi or wheezes noted. No increased work of breathing, no retractions or nasal flaring. Abdomen/GI: Soft, non-tender, with normal bowel sounds. No distension or tympany. No guarding or rebound. No evidence of tenderness throughout. Back: No spinal tenderness. No costovertebral tenderness. Full range of motion. Skin: Warm, dry with normal turgor. Normal color with no rashes, no lesions, and no evidence of cellulitis. MS/ Extremity: Pulses equal, no cyanosis. Neurovascular intact. Full, normal range of motion. Neuro: Awake and alert, GCS 15, oriented to person, place, time, and situation. Cranial nerves II-XII grossly intact. Motor strength 5/5 in all extremities. Sensory grossly intact. Cerebellar exam normal. Normal gait. Psych: Awake, alert, with orientation to person, place and time. Behavior, mood, and affect are within normal limits. 19:35 Abdomen/GI: Inspection: distension, Bowel sounds: normal, Palpation: mild abdominal vicente tenderness, in all quadrants, Liver: no appreciated palpable abnormalities, Hernia: not appreciated. Vital Signs: 19:06 BP 124 / 65; Pulse 88; Resp 16; Temp 98.4; Pulse Ox 100% on R/A; Weight 77.11 kg; la1 Height 6 ft. 0 in. (182.88 cm); 20:43 BP 125 / 60; Pulse 74; Resp 18; Pulse Ox 100% on R/A; mg2 22:00 BP 122 / 78; Pulse 80; Resp 18; Pulse Ox 100% on R/A; Pain 0/10; mg2 23:23 BP 125 / 86; Pulse 81; Resp 18; Pulse Ox 100% on R/A; Pain 0/10; mg2 19:06 Body Mass Index 23.06 (77.11 kg, 182.88 cm) la MDM: 19:28 Patient medically screened. [facility] 19:37 Data reviewed: vital signs, nurses notes, lab test result(s), EKG, radiologic studies, [facility] CT scan, plain films. 11/12 19:35 Order name: Basic Metabolic Panel; Complete Time: 20:50 [facility] 11/12 19:35 Order name: CBC with Diff; Complete Time: 21:40 [facility] 11/12 19:35 Order name: LFT's; Complete Time: 20:50 [facility] 11/12 19:35 Order name: Magnesium; Complete Time: 20:50 [facility] 11/12 19:35 Order name: NT PRO-BNP; Complete Time: 20:50 [facility] 11/12 19:35 Order name: PT-INR; Complete Time: 20:50 [facility] 11/12 19:35 Order name: Troponin (emerg Dept Use Only); Complete Time: 20:50 [facility] 11/12 19:35 Order name: Lipase; Complete Time: 20:50 [facility] 11/12 19:35 Order name: Stool Culture [facility] 11/12 19:35 Order name: CDIFF [facility] 11/12 19:35 Order name: Fecal Leukocyte Stain; Complete Time: 21:40 [facility] 11/12 19:35 Order name: Urine Culture [facility] 11/12 20:23 Order name: CBC Smear Scan; Complete Time: 21:40 [facility] 11/12 20:54 Order name: Urine Dipstick--Ancillary (enter results) ar5 11/12 19:35 Order name: XRAY Chest (1 view); Complete Time: 20:50 [facility] 11/12 19:35 Order name: EKG; Complete Time: 19:36 [facility] 11/12 19:35 Order name: Cardiac monitoring; Complete Time: 20:06 [facility] 11/12 19:35 Order name: EKG - Nurse/Tech; Complete Time: 20:06 [facility] 11/12 19:35 Order name: IV Saline Lock; Complete Time: 20:07 [facility] 11/12 19:35 Order name: CT Abd/Pelvis - W/Contrast [facility] 11/12 22:13 Order name: CONS Pharmacy Consult [facility] 11/12 22:13 Order name: Clear Liquid [facility] 11/12 22:13 Order name: CBC with Automated Diff [facility] 11/12 22:13 Order name: CBC with Automated Diff [facility] 11/12 22:13 Order name: Comprehensive Metabolic Panel [facility] 11/12 22:13 Order name: Comprehensive Metabolic Panel [facility] 11/12 19:35 Order name: Labs collected and sent; Complete Time: 20:07 [facility] 11/12 19:35 Order name: O2 Per Protocol; Complete Time: 20:07 [facility] 11/12 19:35 Order name: O2 Sat Monitoring; Complete Time: 20:07 [facility] 11/12 19:35 Order name: Urine Dipstick-Ancillary (obtain specimen); Complete Time: 21:25 [facility] Administered Medications: 20:06 Drug: NS 0.9% 500 ml Route: IV; Rate: bolus; Site: left antecubital; mg2 21:25 Follow up: Response: No adverse reaction; IV Status: Completed infusion mg2 20:36 Drug: NS 0.9% 1000 ml Route: IV; Rate: 125 ml/hr; Site: left antecubital; mg2 23:25 Follow up: Response: No adverse reaction; IV Status: Infusion continued upon admission; mg2 IV Intake: 250ml 23:18 Drug: Flagyl 500 mg Volume: 100 ml; Route: IVPB; Rate: 200 ml/hr; Infused Over: 30 mg2 mins; Site: left antecubital; 23:25 Follow up: Response: No adverse reaction; IV Status: Infusion continued upon admission mg2 23:42 Not Given (medicine sent to the floor with the patient): Cipro 400 mg 200 ml IVPB once mg2 over 60 mins Disposition: 11/12/18 21:40 Hospitalization ordered by Andree Cadet for Inpatient Admission. Preliminary diagnosis are Weakness, Diarrhea, unspecified, Anemia, unspecified, Unspecified kidney failure, Volume depletion, Left sided colitis with complications, Constipation. - Bed requested for Telemetry/MedSurg (Inpatient). - Status is Inpatient Admission. mg2 - Condition is Fair. - Problem is new. - Symptoms have improved. UTI on Admission? No Signatures: Dispatcher [employer] EDMS Evy Willoughby RN RN mw Anderson, Corey, MD MD cha Attema, Lee, RN RN la1 Jin Rodriguez RN RN mg2 Corrections: (The following items were deleted from the chart) 19:04 19:03 Home Meds: verapamil 240 mg Oral TbER 1 tab once daily; la1 la1 21:42 21:40 Hospitalization Ordered by Andree Cadet MD for Inpatient Admission. Preliminary [facility] diagnosis is Weakness; Diarrhea, unspecified. Bed requested for Telemetry/MedSurg (Inpatient). Status is Inpatient Admission. Condition is Fair. Problem is new. Symptoms have improved. UTI on Admission? No. vicente 23:08 21:42 11/12/2018 21:40 Hospitalization Ordered by Andree Cadet MD for Inpatient [facility] Admission. Preliminary diagnosis is Weakness; Diarrhea, unspecified; Anemia, unspecified; Unspecified kidney failure; Volume depletion. Bed requested for Telemetry/MedSurg (Inpatient). Status is Inpatient Admission. Condition is Fair. Problem is new. Symptoms have improved. UTI on Admission? No. vicente 23:11 23:08 11/12/2018 21:40 Hospitalization Ordered by Andree Cadet MD for Inpatient Admission. Preliminary diagnosis is Weakness; Diarrhea, unspecified; Anemia, unspecified; Unspecified kidney failure; Volume depletion; Left sided colitis with complications; Constipation. Bed requested for Telemetry/MedSurg (Inpatient). Status is Inpatient Admission. Condition is Fair. Problem is new. Symptoms have improved. UTI on Admission? No. vicente 23:43 23:11 11/12/2018 21:40 Hospitalization Ordered by Andree Cadet MD for Inpatient mg2 Admission. Preliminary diagnosis is Weakness; Diarrhea, unspecified; Anemia, unspecified; Unspecified kidney failure; Volume depletion; Left sided colitis with complications; Constipation. Bed requested for Telemetry/MedSurg (Inpatient). Status is Inpatient Admission. Condition is Fair. Problem is new. Symptoms have improved. UTI on Admission? No.
--- NOTE | 2018-11-12 21:41 | ER ---
Nurse's Notes [facility] Name: Tate Olivas Age: 83 yrs Sex: Male : 1935 Arrival Date: 11/12/2018 Time: 18:58 Bed 28 Private MD: Edgar Nguyen T Diagnosis: Weakness;Diarrhea, unspecified;Anemia, unspecified;Unspecified kidney failure;Volume depletion;Left sided colitis with complications;Constipation Presentation: 11/12 19:04 Presenting complaint: Patient states: Diarrhea that started today, redness and burning la1 to rectal area. states the last few days he has not had his normal vitamin E and she feels this is the cause of his diarrhea. Transition of care: patient was not received from another setting of care. Onset of symptoms was November 12, 2018. Risk Assessment: Do you want to hurt yourself or someone else? Patient reports no desire to harm self or others. Initial Sepsis Screen: Does the patient meet any 2 criteria? No. Patient's initial sepsis screen is negative. Does the patient have a suspected source of infection? No. Patient's initial sepsis screen is negative. Care prior to arrival: None. 19:04 Method Of Arrival: Ambulatory la1 19:04 Acuity: CINTHIA 3 la1 Triage Assessment: 23:25 Pain: Denies pain. 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 - Social history:: Smoking status: Patient/guardian denies using tobacco. - Ebola Screening: : No symptoms or risks identified at this time. - Family history:: not pertinent. Screenin:21 Abuse screen: Denies threats or abuse. Denies injuries from another. Nutritional mg2 screening: No deficits noted. Tuberculosis screening: No symptoms or risk factors identified. 19:22 Fall Risk None identified. mg2 Assessment: 19:21 General: Appears in no apparent distress. comfortable, Behavior is calm, cooperative. mg2 Neuro: Level of Consciousness is awake, alert, obeys commands, Oriented to person, place, time, situation. Cardiovascular: Capillary refill < 3 seconds Patient's skin is warm and dry. Respiratory: Airway is patent Respiratory effort is even, unlabored, Respiratory pattern is regular, symmetrical. GI: Reports diarrhea. : No signs and/or symptoms were reported regarding the genitourinary system. EENT: No signs and/or symptoms were reported regarding the EENT system. Derm: Skin is intact, is healthy with good turgor, Skin is pink, warm \T\ dry. normal. Musculoskeletal: Circulation, motion, and sensation intact. Capillary refill < 3 seconds. Vital Signs: 19:06 BP 124 / 65; Pulse 88; Resp 16; Temp 98.4; Pulse Ox 100% on R/A; Weight 77.11 kg; la1 Height 6 ft. 0 in. (182.88 cm); 20:43 BP 125 / 60; Pulse 74; Resp 18; Pulse Ox 100% on R/A; mg2 22:00 BP 122 / 78; Pulse 80; Resp 18; Pulse Ox 100% on R/A; Pain 0/10; mg2 23:23 BP 125 / 86; Pulse 81; Resp 18; Pulse Ox 100% on R/A; Pain 0/10; mg2 19:06 Body Mass Index 23.06 (77.11 kg, 182.88 cm) la1 ED Course: 18:58 Patient arrived in ED. as 18:59 Edgar Nguyen MD is Private Physician. as 19:04 Arm band placed on right wrist. la1 19:06 Triage completed. la1 19:12 Jin Rodriguez, BONITA is Primary Nurse. mg2 19:22 Patient has correct armband on for positive identification. Call light in reach. Side mg2 rails up X2. Pulse ox on. NIBP on. Door closed. Warm blanket given. 19:23 No provider procedures requiring assistance completed. mg2 19:28 Chaka Farmer MD is Attending Physician. vicente 20:07 Inserted saline lock: 20 gauge in left antecubital area, using aseptic technique. Blood mg2 collected. 20:19 XRAY Chest (1 view) In Process Unspecified. EDMS 21:40 Cadet, Mohammad, MD is Hospitalizing Provider. [facility] 22:04 CT Abd/Pelvis - W/Contrast In Process Unspecified. EDMS 23:21 Patient admitted, IV remains in place. mg2 Administered Medications: 20:06 Drug: NS 0.9% 500 ml Route: IV; Rate: bolus; Site: left antecubital; mg2 21:25 Follow up: Response: No adverse reaction; IV Status: Completed infusion mg2 20:36 Drug: NS 0.9% 1000 ml Route: IV; Rate: 125 ml/hr; Site: left antecubital; mg2 23:25 Follow up: Response: No adverse reaction; IV Status: Infusion continued upon admission; mg2 IV Intake: 250ml 23:18 Drug: Flagyl 500 mg Volume: 100 ml; Route: IVPB; Rate: 200 ml/hr; Infused Over: 30 mg2 mins; Site: left antecubital; 23:25 Follow up: Response: No adverse reaction; IV Status: Infusion continued upon admission mg2 23:42 Not Given (medicine sent to the floor with the patient): Cipro 400 mg 200 ml IVPB once mg2 over 60 mins Intake: 23:25 IV: 250ml; Total: 250ml. mg2 Outcome: 21:40 Decision to Hospitalize by Provider. [facility] 23:24 Admitted to Tele accompanied by tech, via stretcher, room 404, with chart, Report mg2 called to BONITA Lambert 23:24 Condition: stable 23:24 Instructed on the need for admit, Demonstrated understanding of instructions. 23:43 Patient left the ED. mg2 Signatures: Dispatcher [employer] EDOK Chaka Farmer MD MD cha Martinez, Amelia as Attema, Lee, RN RN Jin Blackwell RN RN mg2 Corrections: (The following items were deleted from the chart) 19:04 19:03 Home Meds: verapamil 240 mg Oral TbER 1 tab once daily; la1 la1 21:12 20:43 Pulse 74bpm; Resp 18bpm; Pulse Ox 100% RA; mg2 mg2
[2018-11-12] MEDS ORDERED: ACETAMINOPHEN 500 MG TAB PO PRN (22:11)
[2018-11-12] MEDS ORDERED: ONDANSETRON 4 MG/2 ML VIAL IV PRN (22:11)
[2018-11-12] MEDS ORDERED: MORPHINE 2 MG/ML SYR IV PRN (22:11)
[2018-11-12] MEDS ORDERED: CIPROFLOXACIN 400mg IV 400 MG/200 ML BAG IV ONE (23:26)
[2018-11-12] MEDS ORDERED: METRONIDAZOLE 500mg IVPB 500 MG/100 ML BAG IV ONE (23:27)
[2018-11-12] MEDS: NA CHLORIDE 0.9% 1,000 ML IV SCH (23:50)
[2018-11-13] MEDS: METRONIDAZOLE 500mg IVPB 500 MG/100 ML BAG IV SCH ×3 (00:32→17:14)
[2018-11-13] MEDS ORDERED: Levofloxacin500mg IV 500 MG/100 ML BAG IV SCH (01:00)
[2018-11-13 04:41] LABS: Urine Blood NEGATIVE (NEG); Urine Glucose NEGATIVE (NEG); Urine Protein TRACE (NEG)
[2018-11-13 06:20] LABS: Absolute Lymphocytes (CBC) 0.5 K/uL (0.7-4.9); Absolute Monocytes 0.7 K/uL (0.1-1.3); Absolute Neutrophil 4.6 K/uL (1.8-8.0); Basophils % 0.1 % (0-1.3); Hematocrit 33.4 % (39.6-49.0); Lymphocytes % 8.4 % (15.3-44.8); MPV 10.5 fL (7.6-11.3); Monocytes % 11.6 % (3.3-12.3); RBC Red Blood Cell Count 3.82 M/uL (4.33-5.43)
[2018-11-13 06:36] LABS: Albumin 3.5 g/dL (3.4-5.0); Bilirubin Total 0.8 mg/dL (0.2-1.0); Potassium 4.1 mmol/L (3.5-5.1); Protein, Total 6.6 g/dL (6.4-8.2)
--- NOTE | 2018-11-13 07:48 | EKG ---
Test Date: 2018-11-12 Test Time: 20:06:27 School Administrator: LINDA MEASUREMENT RESULTS: Intervals: Rate: 84 ME: 148 QRSD: 88 QT: 380 QTc: 449 [place]: P: 21 ME: 148 QRS: 21 T: 40 INTERPRETIVE STATEMENTS: Normal sinus rhythm Normal ECG Compared to ECG 08/13/2018 10:44:00 No significant changes Electronically Signed On 11-13-18 07:46:46 CDT by Sean Hnuter
[2018-11-13] MEDS: NA CHLORIDE 0.9% 1,000 ML IV SCH ×3 (09:00→17:14)
--- NOTE | 2018-11-13 10:44 | P.PN ---
Subjective Date of Service: 11/13/18 Patient seen and examined at bedside with RN. Chart reviewed. Case discussed with patient's family at bedside. Currently had a bowel movement this morning. Performed. States no further diarrhea noted. Does appear to be having some generalized weakness however this today. Awaiting PT recommendations. Review of Systems 10-point ROS is otherwise unremarkable Physical Examination - Vital Signs Temperature: 97.6 F Blood Pressure: 125/65 Pulse: 66 Respirations: 16 Pulse Ox (%): 100 - Physical Exam General: Alert, Cachectic, Mild distress HEENT: Atraumatic Neck: Supple Respiratory: Normal air movement, Expiratory wheezes Cardiovascular: Regular rate/rhythm, Normal S1 S2 Gastrointestinal: Normal bowel sounds, No tenderness Musculoskeletal: No tenderness Integumentary: No rashes Neurological: Normal speech, Normal tone, Normal affect, Abnormal strength Lymphatics: No axilla or inguinal lymphadenopathy - Studies Laboratory Data (last 24 hrs) 11/12/18 20:00: PT 12.5, INR 1.06 11/12/18 20:00: WBC 5.2, Hgb 12.5 L, Hct 35.8 L, Plt Count 68 L 11/12/18 20:00: Sodium 135 L, Potassium 4.4, BUN 39 H, Creatinine 1.28, Glucose 124 H, Magnesium 2.5 H, Total Bilirubin 0.7, AST 15, ALT 13, Alkaline Phosphatase 77, Lipase 242 Microbiology Data (last 24 hrs): 11/12/18 20:35 Stool Clostridium difficile Toxin Assay - Final 11/12/18 20:35 Stool Fecal Leukocyte Stain - Final Medications List Reviewed: Yes Assessment And Plan - Current Problems (Diagnosis) (1) Fecal impaction Current Visit: Yes Status: Acute Plan: Patient with a history of chronic fecal impaction. Currently now with acute fecal impaction as well. -enemas x2 in the ER -patient had a huge bowel movement this morning -will continue with stool softener and milk of Mag -will monitor patient closely for any diarrheal episode. (2) Parkinsons disease Onset Date: 10/27/17 Current Visit: No Status: Chronic Plan: Patient with history of chronic Parkinson's disease now with generalized weakness. Physical therapy has been consulted. Will follow up with recommendations regarding home health versus placement. - Plan Pending clinical improvement. Will continue with IV fluids and current treatment. Will also get physical therapy consultation at this time. Patient may need home health versus placement depending on the evaluation Discharge Plan: Home Plan to discharge in: 48 Hours - Code Status/Comfort Care Code Status Assessed: Yes
[2018-11-13] MEDS ORDERED: MELATONIN 5 MG TABLET PO PRN (10:46)
[2018-11-13] MEDS: CARBIDOPA/LEVODOPA 25/100 TAB PO SCH ×6 (13:49→22:53)
[2018-11-13] MEDS ORDERED: HALOPERIDOL LACT 5 MG/ML INJ IM PRN (14:06)
--- NOTE | 2018-11-13 17:29 | P.HP ---
Certification for Inpatient Patient admitted to: Observation With expected LOS: <2 Midnights Patient will require the following post-hospital care: None Practitioner: I am a practitioner with admitting privileges, knowledge of patient current condition, hospital course, and medical plan of care. Services: Services provided to patient in accordance with Admission requirements found in Title 42 Section 412.3 of the Code of Federal Regulations Patient History Date of Service: 11/12/18 Reason for admission: abdominal pain and colitis History of Present Illness: Patient is an 83-year-old gentleman who came to the hospital with abdominal pain. Patient has also been having diarrhea. Patient's did most of the speaking for him because he has dementia and Parkinson's disease. She states that he has had this problem before and before he was found to be impacted. She said she was told that patient was having stool around the impaction which resulted in his diarrhea. He is not having a lot of pain on exam except in the left lower quadrant. A CT scan is pending. The official report is not up at this time. Patient does have a large amount of stool in the colon. Will go ahead and given him an enema. Will also start him on antibiotics. Continue a clear liquid diet and advanced as tolerated. Allergies Penicillins Allergy (Verified 10/27/17 05:12) Unknown citric acid Adverse Reaction (Verified 10/27/17 05:12) Unknown Doxycycline Allergy (Uncoded 10/27/17 05:12) Confusion Home Medications: Carbidopa/Levodopa [Carbidopa-Levo 25-100 mg Odt] 1 each PO QID 10/27/17 Lisinopril 10 mg PO BEDTIME 10/27/17 Rivastigmine Patch [Exelon 9.5 mg Patch] 9.5 mg TD DAILY 10/27/17 Melatonin 5 mg PO BEDTIME PRN PRN 11/13/18 - Past Medical/Surgical History Has patient received pneumonia vaccine in the past: Yes Diabetic: No -: Hairy Cell Leukemia -: HTN -: Parkinsons -: UTI -: Squamous Cell Carcinoma -: Basal Cell Carcinoma -: Squamous Cell Carcinoma Surgery -: Basal Cell Carcinoma Surgery - Family History Father Medical History: Hypertension Sister Medical History: Hypertension, Diabetes Brother Medical History: Diabetes - Social History Smoking Status: Never smoker Alcohol use: No CD- Drugs: No Caffeine use: No Place of Residence: Home Review of Systems is unable to be obtained Physical Examination - Vital Signs Temperature: 97.5 F Blood Pressure: 180/80 Pulse: 72 Respirations: 16 Pulse Ox (%): 95 - Physical Exam General: Alert, In no apparent distress, Oriented x1, Demented HEENT: Atraumatic, PERRLA, Mucous membr. moist/pink, EOMI, Sclerae nonicteric Neck: Supple, 2+ carotid pulse no bruit, No LAD, Without JVD or thyroid abnormality Respiratory: Clear to auscultation bilaterally, Normal air movement Cardiovascular: Regular rate/rhythm, Normal S1 S2 Gastrointestinal: No rebound, No guarding, Succussion splash, Tenderness Musculoskeletal: No tenderness Integumentary: No rashes Neurological: Normal speech, Cranial nerves 3-12 intact, Normal affect, Abnormal gait, Abnormal strength, Abnormal tone Lymphatics: No axilla or inguinal lymphadenopathy - Studies Laboratory Data (last 24 hrs) 11/12/18 20:00: PT 12.5, INR 1.06 11/12/18 20:00: WBC 5.2, Hgb 12.5 L, Hct 35.8 L, Plt Count 68 L 11/12/18 20:00: Sodium 135 L, Potassium 4.4, BUN 39 H, Creatinine 1.28, Glucose 124 H, Magnesium 2.5 H, Total Bilirubin 0.7, AST 15, ALT 13, Alkaline Phosphatase 77, Lipase 242 Microbiology Data (last 24 hrs): 11/12/18 20:35 Stool Clostridium difficile Toxin Assay - Final 11/12/18 20:35 Stool Fecal Leukocyte Stain - Final Assessment & Plan - Problems (Diagnosis) (1) Fecal impaction Current Visit: Yes Status: Acute (2) Parkinsons disease Onset Date: 10/27/17 Current Visit: No Status: Chronic (3) Acute kidney injury Onset Date: 10/27/17 Current Visit: No Status: Resolved (4) Hyponatremia Onset Date: 10/27/17 Current Visit: No Status: Resolved (5) Infectious diarrhea in adult patient Onset Date: 10/27/17 Current Visit: No Status: Resolved - Plan Plan: 1. IV fluids and IV antibiotics 2. Stool studies 3. Surgery consultation 4. Pain control and liquid diet 5. Bowel regimen 6. Repeat abdominal film if pain worsens to rule out perforation 7. Soap suds enema x 2 8. Continue exelon patch and parkinson's meds 9. GI and DVT prophylaxis Discharge Plan: Home Plan to discharge in: 48 Hours - Advance Directives Does patient have a Living Will: Yes Does patient have a Durable POA for Healthcare: Yes - Code Status/Comfort Care Code Status Assessed: Yes Code Status: Full Code Critical Care: No Time Spent Managing PTS Care (In Minutes): 45
[2018-11-13] MEDS: LISINOPRIL 10 MG TAB PO SCH ×2 (21:00→22:53)
[2018-11-14] MEDS: METRONIDAZOLE 500mg IVPB 500 MG/100 ML BAG IV SCH ×3 (01:20→16:01)
[2018-11-14 05:03] LABS: Absolute Lymphocytes (CBC) 0.5 K/uL (0.7-4.9); Absolute Monocytes 0.7 K/uL (0.1-1.3); Absolute Neutrophil 1.5 K/uL (1.8-8.0); Basophils % 0.4 % (0-1.3); Eosinophils % 0.1 % (0-4.4); Lymphocytes % 17.1 % (15.3-44.8); MPV 10.1 fL (7.6-11.3); Monocytes % 24.7 % (3.3-12.3); RBC Red Blood Cell Count 3.73 M/uL (4.33-5.43)
[2018-11-14 05:09] LABS: Magnesium 2.3 mg/dL (1.8-2.4); Potassium 3.8 mmol/L (3.5-5.1)
[2018-11-14 06:34] LABS: Blood Morphology Comment NOT SEEN (NOT SEEN); Platelet Estimate DECR; Urine White Blood Cell Casts OK
[2018-11-14] MEDS: NA CHLORIDE 0.9% 1,000 ML IV SCH ×2 (07:00→15:22)
[2018-11-14] MEDS: RIVASTIGMINE 9.5 MG/24 HR PATCH TD SCH (08:43)
[2018-11-14] MEDS: CARBIDOPA/LEVODOPA 25/100 TAB PO SCH ×5 (08:47→21:32)
--- NOTE | 2018-11-14 13:19 | RAD REPORT ---
EXAM DESCRIPTION: CT ABDOMEN PELVIS WITH IV CONTRAST CLINICAL HISTORY: Diarrhea. Rectal pain. COMPARISON: None. TECHNIQUE: CT scan of the abdomen and pelvis was performed with IV contrast. This exam was performed according to our departmental dose-optimization program, which includes automated exposure control, adjustment of the mA and/or kV according to patient size and/or use of iterative reconstruction techn ique. FINDINGS: Mild atelectasis at the lung bases. No pleural or pericardial effusions. There is no hiata l hernia. Multiple cysts are present throughout the liver with the largest measuring 3.4 x 2.7 cm in the right hepatic lobe. The gallbladder, spleen, pancreas, adrenal glands, and kidneys are normal. Multiple sim ple cysts are seen in both kidneys. No hydronephrosis or obstructing urinary stones. The prostate gla nd is enlarged, measuring 6 cm. There is large amount of stool in the rectum with minimal surrounding inflammatory changes. No eviden ce of small bowel obstruction. There are scattered colonic diverticula without surrounding inflammato ry changes. The appendix is not well visualized. No intraperitoneal free fluid or free air is seen. There are mild degenerative changes of the spine. The aorta and IVC are normal. No body wall hernia i s seen. IMPRESSION: 1. Large amount of stool in the rectum with mild inflammatory changes suggesting sterc oral colitis. 2. No small bowel bowel obstruction or diverticulitis. Electronically signed by: Andrey Wetzel MD 11/12/2018 10:17 PM CDT Due to temporary technical issues with the PACS/Fluency reporting system, reports are being signed by the in house radiologist as a courtesy to ensure prompt reporting. The interpreting radiologist is f ully responsible for the content of the report.
--- NOTE | 2018-11-14 15:45 | P.PN ---
Subjective Date of Service: 11/14/18 Primary Care Provider: Dr. Nguyen; Neurology-Dr. Funes Chief Complaint: abdominal pain and colitis Subjective: Other (Patient with underlying dementia and Parkinson's. Patient with poor mobility.) Physical Examination - Vital Signs Temperature: 98.4 F Blood Pressure: 109/69 Pulse: 93 Respirations: 17 Pulse Ox (%): 98 - Physical Exam General: Alert, Cooperative, Demented HEENT: Atraumatic Neck: Supple Respiratory: Clear to auscultation bilaterally, Normal air movement Cardiovascular: Normal pulses, Regular rate/rhythm Gastrointestinal: Normal bowel sounds, Soft and benign, Non-distended Neurological: Dementia - Studies Microbiology Data (last 24 hrs): 11/12/18 20:35 Stool Culture & Sensitivity - Final 11/12/18 21:00 Clean Catch Urine [place] Count - Final 11/12/18 21:00 Clean Catch Urine - Final No growth. 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 Patient has had bowel movement. Patient with chronic constipation. Encourage oral intake. Will provide medication for constipation. Will plan to discharge once patient is safe to ambulate. Parkinson's with Lewy body dementia: Restart home medication. Patient had difficulty with ambulation this morning. Patient may require assistance at home. Will consult his neurologist for further evaluation. Patient may require further adjustment in medication. Case discussed with . If physical therapy is not enough patient may require skilled placement. Will continue to reassess. Fall risk: Physical therapy and occupational therapy to continue to reassess, plan to discharge once patient able to ambulate appropriately and safely. Chronic thrombocytopenia with history of hairy-cell leukemia: Will monitor this closely. Patient sees Oncology in [place]. Hypertension: Restart home medication. Will monitor closely. Time Spent Managing Pts Care (In Minutes): 55
[2018-11-14] MEDS: LISINOPRIL 10 MG TAB PO SCH (21:31)
[2018-11-15] MEDS: METRONIDAZOLE 500mg IVPB 500 MG/100 ML BAG IV SCH ×2 (00:57→09:55)
[2018-11-15 06:24] LABS: Absolute Lymphocytes (CBC) 0.7 K/uL (0.7-4.9); Absolute Monocytes 0.7 K/uL (0.1-1.3); Basophils % 0.3 % (0-1.3); Eosinophils % 0.1 % (0-4.4); Hematocrit 36.5 % (39.6-49.0); Lymphocytes % 20.1 % (15.3-44.8); MPV 9.7 fL (7.6-11.3); Monocytes % 20.5 % (3.3-12.3); RBC Red Blood Cell Count 4.12 M/uL (4.33-5.43)
[2018-11-15 06:38] LABS: Magnesium 2.3 mg/dL (1.8-2.4); Potassium 4.3 mmol/L (3.5-5.1)
[2018-11-15] MEDS: CARBIDOPA/LEVODOPA 25/100 TAB PO SCH ×3 (09:55→16:49)
[2018-11-15] MEDS: RIVASTIGMINE 9.5 MG/24 HR PATCH TD SCH (09:56)
--- NOTE | 2018-11-15 14:52 | P.PN ---
Subjective Date of Service: 11/15/18 Primary Care Provider: Dr. Nguyen; Neurology-Dr. Funes Chief Complaint: abdominal pain and colitis Subjective: Other (Slow improvement with physical therapy.) Physical Examination - Vital Signs Temperature: 97.8 F Blood Pressure: 111/62 Pulse: 85 Respirations: 17 Pulse Ox (%): 98 - Physical Exam General: Alert, Demented HEENT: Atraumatic Neck: Supple Respiratory: Clear to auscultation bilaterally, Normal air movement Cardiovascular: Normal pulses, Regular rate/rhythm Neurological: Dementia - Studies Medications List Reviewed: Yes Assessment & Plan Discharge Plan: Home (With hospice) Plan to discharge in: 24 Hours Physician Review Additional Text: Impression: Fecal impaction with chronic constipation Parkinson's with Lewy body dementia Fall risk 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 Patient doing well at this time. Options of care address with . Patient has increased fall risk. Physical therapy evaluated patient with poor progress. Options address with case management. Patient not qualified for inpatient rehab, skilled placement. Hospice address in detail along with the advance directives with . Patient DNR. Will pursue hospice at discharge with provider help. This was discussed in detail with the who agrees with plan of care. Anticipate discharge in the next 24 hr once hospice is arranged. Parkinson's with Lewy body dementia: Continue home medication. Continue as above. Patient to be DNR. Will pursue hospice at home with caregiver services. Will discuss with Neurology. Fall risk: Physical therapy and occupational therapy evaluated patient. Patient high risk for fall. Patient not qualified to go to a skilled facility or inpatient rehab at this time. Will pursue hospice at discharge. Chronic thrombocytopenia with history of hairy-cell leukemia: Will monitor this closely. Patient sees Oncology in [place]. Hypertension: Continue home medication. Will monitor closely. Time Spent Managing Pts Care (In Minutes): 55
[2018-11-15] MEDS ORDERED: LACTULOSE 20 GM/30 ML UCUP PO PRN (15:43)
[2018-11-15] MEDS: LISINOPRIL 10 MG TAB PO SCH (20:57)
[2018-11-15] MEDS: CARBIDOPA/LEVODOPA 25/250 TAB PO SCH (22:09)
--- NOTE | 2018-11-16 01:42 | CON ---
Date of Consultation: 11/15/2018 Reason: Lewy body disease. History: An 83-year-old gentleman with history of Lewy body disease, admitted to the hospital with a bdominal pain and diarrhea. The patient has that problem in the past, was found to have an impaction . CT scan abdomen and pelvis demonstrates stool in the rectum and inflammatory changes, suggesting c olitis, multiple cysts in the liver and an enlarged prostate. The GI problem is better, but it was n oted that the patient has recently. Sinemet was increased over the phone to 4 times daily , but the patient continued to have generalized weakness and gait instability. He is on Exelon patch as well. is considering hospice and that is a conversation that we have had in the office as stacie bocanegra. Consultation was requested. Past Medical History: Dementia with Lewy bodies, hypertension, history of leukemia. Allergies: PENICILLIN, DOXYCYCLINE. Medications: Sinemet 2500 q.i.d., melatonin, Exelon patch 9.5, lisinopril. Social History: He is , lives with his . Requires assistance with activities of daily li ving. Former smoker. He has prominent incontinence and confusion, especially at night. Family History: Noncontributory. Review of Systems: General: Chronically ill. Eyes: Negative. Ears, Nose, Throat: Negative. Cardiovascular: Hypertension. Pulmonary: Negative. GI: As alluded to. : Incontinence. Musculoskeletal: Generalized weakness. Neurologic: As noted. Psychiatric: As noted. Endocrine: Negative. Hematologic: Leukemia. Physical Examination: Vital Signs: 98.3, 72, 20, 123/68. General: He is a pleasant, thin gentleman, sitting in bed, confused, but not delirious. Heart: Sinus rhythm. Lungs: Clear. Abdomen: Soft. Bowel sounds present. Neurologic: He is awake, conversant, confused, tangential, which is his baseline. Moderate masking of facial expression with decreased blink rate. Ocular motion full without nystagmus. Visual sutton full to confrontation bilaterally. Facial strength and sensation are normal. Tongue protrudes even ly. Soft palate elevates symmetrically bilaterally. Extremity strength full. Orthopedic limitation to the shoulders bilaterally. Sensation decreased symmetrically distally. Reflexes trace. Toes ar e downgoing. Cerebellar exam demonstrates cogwheel rigidity. Impression: Lewy body disease. Plan: We will make a slight adjustment in his carbidopa/levodopa going to 25-50 three times daily. I would recommend being cautious about high doses of neuroleptics such as haloperidol as patients wit h Lewy body disease tend to be very sensitive to that medication and it can precipitate neuroleptic m alignant syndrome. Thank you for the consult. We will continue to follow with you. NAIMA Voice ID: [id number] Report ID: [id number]
[2018-11-16 04:22] LABS: Absolute Lymphocytes (CBC) 0.5 K/uL (0.7-4.9); Absolute Monocytes 0.5 K/uL (0.1-1.3); Absolute Neutrophil 1.3 K/uL (1.8-8.0); Basophils % 0.4 % (0-1.3); Eosinophils % 0.1 % (0-4.4); Hematocrit 33.3 % (39.6-49.0); Lymphocytes % 21.8 % (15.3-44.8); MPV 9.9 fL (7.6-11.3); Monocytes % 22.6 % (3.3-12.3); RBC Red Blood Cell Count 3.81 M/uL (4.33-5.43)
[2018-11-16 04:32] LABS: Magnesium 2.2 mg/dL (1.8-2.4); Potassium 3.6 mmol/L (3.5-5.1)
[2018-11-16] MEDS: RIVASTIGMINE 9.5 MG/24 HR PATCH TD SCH (08:45)
[2018-11-16] MEDS: CARBIDOPA/LEVODOPA 25/250 TAB PO SCH (08:48)
[2018-11-16] MEDS ORDERED: DOCUSATE NA 100 MG CAP PO SCH (09:00)
--- NOTE | 2018-11-16 10:22 | P.DS ---
Admission Date: 11/12/18 Discharge Date: 11/16/18 Primary Care Provider: Dr. Nguyen; Neurology-Dr. Funes Disposition: HOSPICE-HOME Discharge Condition: GOOD Reason for Admission: abdominal pain and colitis Consultations: Neurology-Dr. Funes Procedures: CT scan: FINDINGS: Mild atelectasis at the lung bases. No pleural or pericardial effusions. There is no hiatal hernia. Multiple cysts are present throughout the liver with the largest measuring 3.4 x 2.7 cm in the right hepatic lobe. The gallbladder, spleen, pancreas, adrenal glands, and kidneys are normal. Multiple simple cysts are seen in both kidneys. No hydronephrosis or obstructing urinary stones. The prostate gland is enlarged , measuring 6 cm. There is large amount of stool in the rectum with minimal surrounding inflammatory changes. No evidence of small bowel obstruction. There are scattered colonic diverticula without surrounding inflammatory changes. The appendix is not well visualized. No intraperitoneal free fluid or free air is seen. There are mild degenerative changes of the spine. The aorta and IVC are normal. No body wall hernia is seen. IMPRESSION: 1. Large amount of stool in the rectum with mild inflammatory changes suggesting stercoral colitis. 2. No small bowel bowel obstruction or diverticulitis. 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 Patient found to have severe constipation with fecal impaction. Patient was admitted for treatment. Hospital Course: Patient presented with abdominal pain secondary to fecal impaction with chronic constipation. Patient did well and stay. Patient received medication with enema. Patient did have bowel movement. Patient work with physical therapy. Patient did not qualify for inpatient rehab or skilled placement. Patient with underlying Parkinson's with Lewy body dementia. This has worsened over time. Neurology was consulted for further recommendation. Medication adjusted. At discharge carbidopa/levodopa adjusted to 25/250 mg 1 pill 3 times a day. Advanced directives address in detail with the . Patient is DNR. Further recommendations were to start hospice with home caregiver services. agreed. At discharge patient will go home with hospice with home caregiver services. Patient will continue with lactulose twice daily as needed for constipation. Patient may continue with a soft GI diet and docusate daily. Further adjustment in medication can be done by hospice. Patient is high risk for fall. Fall precautions to remain in place at home. Further adjustment can be done by hospice. Patient with underlying hypertension. Patient will continue with his medication lisinopril 20 mg daily. Patient with chronic thrombocytopenia with history of hairy-cell leukemia. Case discussed with Oncology. CBC remained stable. No further intervention required. Vital Signs/Physical Exam: Temp Pulse Resp BP Pulse Ox 97.6 F 75 19 137/75 94 11/16/18 08:00 11/16/18 08:00 11/16/18 08:00 11/16/18 08:00 11/16/18 08:00 General: Alert, Demented HEENT: Atraumatic Neck: Supple Respiratory: Clear to auscultation bilaterally, Normal air movement Cardiovascular: Normal pulses, Regular rate/rhythm Gastrointestinal: Normal bowel sounds, Soft and benign, Non-distended Neurological: Abnormal gait (Shuffled gait. Patient requires assistance for mobility.), Dementia Laboratory Data at Discharge: WBC 2.4 K/uL (4.3-10.9) L D 11/16/18 03:51 Hgb 11.8 g/dL (13.6-17.9) L 11/16/18 03:51 Hct 33.3 % (39.6-49.0) L 11/16/18 03:51 Plt Count 65 K/uL (152-406) L 11/16/18 03:51 PT 12.5 SECONDS (9.5-12.5) 11/12/18 20:00 INR 1.06 11/12/18 20:00 Sodium 138 mmol/L (136-145) 11/16/18 03:51 Potassium 3.6 mmol/L (3.5-5.1) 11/16/18 03:51 BUN 23 mg/dL (7-18) H 11/16/18 03:51 Creatinine 1.04 mg/dL (0.55-1.3) 11/16/18 03:51 Glucose 128 mg/dL (74-106) H 11/16/18 03:51 Magnesium 2.2 mg/dL (1.8-2.4) 11/16/18 03:51 Total Bilirubin 0.8 mg/dL (0.2-1.0) 11/13/18 05:40 AST 14 U/L (15-37) L 11/13/18 05:40 ALT 12 U/L (12-78) 11/13/18 05:40 Alkaline Phosphatase 73 U/L (45-117) 11/13/18 05:40 Lipase 242 U/L (73-393) 11/12/18 20:00 Home Medications: Lisinopril 20 mg PO BEDTIME 10/27/17 Rivastigmine Patch [Exelon 9.5 mg Patch] 9.5 mg TD DAILY 10/27/17 Melatonin 5 mg PO BEDTIME PRN PRN 11/13/18 Carbidopa/Levodopa 25-250 [Sinemet 25-250*] 1 tab PO TID #90 tab 11/16/18 Docusate [Colace Cap*] 100 mg PO DAILY #30 cap 11/16/18 Lactulose [Cephulac*] 30 ml PO BID PRN #1 bottle 11/16/18 New Medications: Carbidopa/Levodopa 25-250 [Sinemet 25-250*] 1 tab PO TID #90 tab Docusate [Colace Cap*] 100 mg PO DAILY #30 cap Lactulose [Cephulac*] 30 ml PO BID PRN #1 bottle PRN Reason: Constipation Patient Discharge Instructions: 1. Recommend follow up with PCP within 1 week to follow up this hospitalization. 2. Patient presents with fecal impaction. Patient did well in his stay. Patient had enema with improvement. Patient with chronic constipation. Patient may continue with docusate 100 mg 1 pill twice daily. Lactulose twice daily as needed for constipation will also be provided. Further adjustment in medication can be done by hospice. 3. Patient with Lewy body dementia and Parkinson's. This has worsened with poor mobility. Case discussed at length with Neurology. Neurology recommended hospice. Advanced directives address. Patient is DNR. agrees to hospice. At discharge patient will continue with hospice with caregiver services. Medication-carbidopa levodopa was adjusted during his stay. Patient may continue with his current medications of Exelon 9.5 mg daily and carbidopa levodopa 25/250 mg 1 pill 3 times a day. Further adjustment can be done by hospice massage therapist. 4. Patient high risk for falls. Fall precautions in place. This can be further addressed by hospice. 5. Patient with hypertension. Patient may continue with lisinopril 20 mg daily. Further adjustment can be done by hospice. Diet: AHA Activity: Fall precautions Time spent managing pt's care (in minutes): 55
== END 2018-11-16 13:26 | disposition hospice, home (50) ==
LOC: ER 18:56 → ERHOLD 22:28 → 4TH 23:22
PROVIDERS: ADMIT Hospitalist; ATTEND Hospitalist
DX: K59.00 Constipation, unspecified (principal); G20 Parkinson's disease; F02.80 Dementia in other diseases classified elsewhere, unspecified severity, without behavioral disturbance, psychotic disturbance, mood disturbance, and anxiety; G31.83 Neurocognitive disorder with Lewy bodies; Z91.81 History of falling; D69.6 Thrombocytopenia, unspecified; Z85.6 Personal history of leukemia; I10 Essential (primary) hypertension; Z66 Do not resuscitate; Z88.0 Allergy status to penicillin
CPT/HCPCS: 96361; 93005; 87088; 87045; 85025 ×5; 80048 ×4; 36415 ×3; 83735 ×4; 89055; 85610; 80076; 87046; 81003; 84484; 83690; 80053; 83880; 74177; 71045; 97112; 97116; 97163; 97530; 96374; 99285; Q9967; J1630; J7030 ×4; J0744; G0378 ×2; 87086; 87493